=== PATIENT | male | born 1960 | race Caucasian/White ===

== ENCOUNTER 2019-07-29 19:07 | Emergency (ER) | payer BC, SELFPAY ==
[2019-07-29 19:54] VITALS: BP 155/89; PULSE 70; RESP 16; TEMP 36.8; O2SAT 97; BMI 32.1
== END 2019-07-29 20:30 | disposition left against medical advice (07) ==
LOC: ER 20:03
PROVIDERS: Emergency Provider Emergency Medicine
DX: I10 Essential (primary) hypertension (principal); R74.8 Abnormal levels of other serum enzymes; Z53.21 Procedure and treatment not carried out due to patient leaving prior to being seen by health care provider
CPT/HCPCS: 99281

== ENCOUNTER 2019-07-30 09:05 | Emergency (ER) | payer BC, SELFPAY ==
[2019-07-30 09:14] VITALS: BP 144/104; PULSE 88; RESP 16; TEMP 36.5; O2SAT 98; BMI 32.1
--- NOTE | 2019-07-30 09:25 | XR_ITS ---
WS: [id number] XR chest 1V portable [id number] REASON FOR EXAM: sob x 1 week FINDINGS: Comparison to previous exam the lung childs are well aerated. No pneumonia, pleural effusio n, pulmonary edema, or mass effect. The heart and mediastinal interfaces normal. 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 The hilum and apices are normal. No osseous abnormalities. XR/XR chest 1V portable [id number] IMPRESSION: Negative chest for active pathology.
--- NOTE | 2019-07-30 09:25 | ECG_ITS ---
Measurements Intervals [place] Rate: 95 P: 42 NM: 168 QRS: -45 QRSD: 94 T: 53 QT: 335 QTc: 421 SINUS RHYTHM WITH OCCASIONAL VENTRICULAR PREMATURE COMPLEXES WITH FREQUENT SUPRAVENTRICULAR PREMATURE COMPLEXES LEFT ANTERIOR FASCICULAR BLOCK [QRS AXIS <= -45, QR IN I, RS IN II] MINIMAL VOLTAGE CRITERIA FOR LVH, CONSIDER NORMAL VARIANT No previous ECG available for comparison Electronically Signed On 07-30-2019 13:20:52 CAN STACKER by Medina Delatorre M.D. [id number] f
--- NOTE | 2019-07-30 09:26 | W.ED.CHESTPA ---
HPI - Chest Pain General: Chief Complaint: Chest Pain Stated Complaint: HAS HAD CP Time Seen by Provider: 07/30/19 09:17 History of Present Illness: HPI narrative: Patient complains about shortness of breath for the last week or 2. Did see Dr. Lopez yesterday and was placed on calcium channel mikael. Has history of high blood pressure patient currently denies chest pain really said he is not had any chest pain over the last week and to just shortness of breath no was nausea and vomiting no diaphoresis. Is treated for reflux and hypertension patient was here at the ER last night because Dr. Lopez told to come up and get some cardiac enzymes done and patient did not want a wait he said he had a few people in front of me he went home because he is feeling okay complaint: other (Shortness of breath) Onset (ago): week(s) Timing of current episode: constant, stable and now resolved Prior episodes: Yes Onset: during rest Pain radiation: none Severity: mild Exacerbating factors: exertion Associated symptoms: Reports dyspnea; Deny abdominal pain, fever(s), nausea or vomiting Review of Systems Const: Denies: fever, chills or body aches Eyes: Denies: change in vision or blurry vision ENMT: Reports: nasal congestion; Denies: throat pain Card: Denies: chest pain or shortness of breath on exertion Resp: Reports: shortness of breath and non-productive cough; Denies: productive cough GI: Denies: abdominal pain, nausea or vomiting : Denies: difficulty urinating Musc: Denies: extremity pain Skin/Breast: Denies: rash Neuro: Denies: headache Psych: Denies: anxiety or depression Charles/Lymph: Denies: easy bruising PFSH ED PFSH: Social History Smoking and tobacco status: former smoker Physical Exam Const: COMMON NORMALS: no apparent distress, average body habitus and oriented x3 HENMT: COMMON NORMALS: normocephalic HEAD & SCALP: normal to inspection and normocephalic FACE & SINUS: normal facial exam Eye: COMMON NORMALS: conjunctivae normal GENERAL EYE: normal appearance of both eyes CONJUNCTIVA: Yes conjunctivae normal Neck/C-Spine: COMMON NORMALS: no JVD Chest: COMMONS NORMALS: inspection of chest normal Resp: COMMON NORMALS: normal respiratory effort and clear to auscultation bilaterally AUSCULTATION: clear to auscultation bilaterally Cardio: COMMON NORMALS: no JVD, regular rate and regular rhythm RATE: regular rate RHYTHM: regular rhythm GI: COMMON NORMALS: normal to inspection, nondistended, normoactive bowel sounds Extremity: COMMON NORMALS: normal to inspection and full ROM Neuro: COMMON NORMALS: oriented x3 Course Vital Signs: Vital signs: Vital Signs Temperature 97.7 F 07/30/19 09:14 Pulse Rate 99 07/30/19 10:46 Respiratory Rate 16 07/30/19 10:46 Blood Pressure 129/80 07/30/19 10:46 Pulse Oximetry 96 07/30/19 10:46 MDM - Chest Pain MDM Narrative: Medical decision making narrative: After visit with patient more thoroughly patient relates to me that he started experimental drug last week for Crohn's disease the drug comes [place] he is not for sure which arm of the testing is on but his blood pressure and shortness of breath seem to start after starting that medication. And Dr. Geiger treated him with a amlodipine starting yesterday. Patient does have a history of anxiety, high strung. Lab Data: Labs: Lab Results 07/30/19 07/30/19 07/30/19 Range/Units 09:30 09:30 09:30 WBC 8.8 (4.0-10.0) 10^3/ uL RBC 5.28 (4.1-5.3) 10^6/u L Hgb 14.0 (11.7-16.6) g/dL Hct 44.6 (42.0-52.0) % MCV 84.5 (80-94) fL MCH 26.5 L (28.0-34.0) pg MCHC 31.4 (30.0-36.0) g/dL RDW 14.3 (12.1-15.1) % Plt Count 387 (130-400) 10^3/c mm MPV 8.8 (7.4-10.4) fL Neut % (Auto) 70.2 % Lymph % (Auto) 16.7 % [place] % (Auto) 9.5 % Eos % (Auto) 2.7 % Baso % (Auto) 0.7 % Neut # (Auto) 6.2 (1.8-7.7) 10^3/u L Lymph # (Auto) 1.5 (0.8-4.8) 10^3/u L [place] # (Auto) 0.8 (0.2-0.9) 10^3/u L Eos # (Auto) 0.2 (0.0-0.8) 10^3/u L Baso # (Auto) 0.1 (0.0-0.1) 10^3/u L Nucleated RBC % (a uto) 0 % Nucleated RBCs # 0.0 /100WBC D-Dimer 0.29 (0-0.59) ug/mIFE U Sodium 142 (136-145) mmol/L Potassium 3.8 (3.5-5.1) mmol/L Chloride 105 (98-107) mmol/L Carbon Dioxide 24 (22-29) mmol/L Anion Gap 16.8 (5-19) BUN 15 (8-23) mg/dL Creatinine 1.2 (0.7-1.2) mg/dL GFR Calculation 61.8 L (90-130) mL/min Glucose 124 H (65-115) mg/dL Calcium 8.7 (8.5-10.5) mg/dL Total Bilirubin 0.2 (0.15-1.2) mg/dL AST 28 (0-40) U/L ALT 27 (0-41) U/L Alkaline Phosphata se 83 (40-130) IU/L Troponin T Baselin e (0-15) ng/mL Total Protein 7.2 (6.6-8.7) g/dL Albumin 4.1 (3.5-5.2) g/dL Globulin 3.1 (1.3-4.6) g/dL 07/30/19 Range/Units 09:30 WBC (4.0-10.0) 10^3/ uL RBC (4.1-5.3) 10^6/u L Hgb (11.7-16.6) g/dL Hct (42.0-52.0) % MCV (80-94) fL MCH (28.0-34.0) pg MCHC (30.0-36.0) g/dL RDW (12.1-15.1) % Plt Count (130-400) 10^3/c mm MPV (7.4-10.4) fL Neut % (Auto) % Lymph % (Auto) % [place] % (Auto) % Eos % (Auto) % Baso % (Auto) % Neut # (Auto) (1.8-7.7) 10^3/u L Lymph # (Auto) (0.8-4.8) 10^3/u L [place] # (Auto) (0.2-0.9) 10^3/u L Eos # (Auto) (0.0-0.8) 10^3/u L Baso # (Auto) (0.0-0.1) 10^3/u L Nucleated RBC % (a uto) % Nucleated RBCs # /100WBC D-Dimer (0-0.59) ug/mIFE U Sodium (136-145) mmol/L Potassium (3.5-5.1) mmol/L Chloride (98-107) mmol/L Carbon Dioxide (22-29) mmol/L Anion Gap (5-19) BUN (8-23) mg/dL Creatinine (0.7-1.2) mg/dL GFR Calculation (90-130) mL/min Glucose (65-115) mg/dL Calcium (8.5-10.5) mg/dL Total Bilirubin (0.15-1.2) mg/dL AST (0-40) U/L ALT (0-41) U/L Alkaline Phosphata se (40-130) IU/L Troponin T Baselin e 29 H (0-15) ng/mL Total Protein (6.6-8.7) g/dL Albumin (3.5-5.2) g/dL Globulin (1.3-4.6) g/dL EKG Data^: EKG 1: EKG interpretation date: 07/30/19 EKG interpretation time: 09:27 Interpretation: SR with PVC,s, LAFB, vent rate 95, pr-168ms, qrs 94ms EKG 2: EKG interpretation date: 07/30/19 EKG interpretation time: 11:49 Interpretation: RVWd, SR PVC, Dr. Garza rvwd Discharge Plan Discharge Patient Disposition: Home, Self-Care Clinical Impression: Cough, Anxiety Condition: Stable Prescriptions: No Action losartan 100 mg Tablet 100 mg PO DAILY RF: 0 upadacitinib 15 mg Tablet Extended Release 24 Hr 30 mg PO DAILY RF: 0 omeprazole 40 mg Capsule,Delayed Release(Dr/Ec) 40 mg PO DAILY RF: 0 Multiple Vitamins Tablet 1 tab PO DAILY RF: 0 triamcinolone acetonide 0.1 % cream See Rx Instructions .ROUTE .COMPLEX RF: 0 Norvasc 10 mg Tablet 10 mg PO DAILY RF: 0 hydrochlorothiazide 12.5 mg capsule 12.5 mg PO DAILY RF: 0 Discharge Orders: Discharge Order (Routine); Ordered 07/30/19 Ordered By: Felipe Daniel Discharge Diet: Usual diet Discharge Activity: Increase activity as tolerated Patient Instructions: Dyspnea (ED), Anxiety (ED) Activity Restrictions/Additional Instructions: Follow-up with your primary care provider discuss medication changes and experimental drug that you are on continue checking blood pressure twice a day return here if symptoms worsen or with your primary provider Coding Level of Care Code ED Permastone Mechanic for Kade Fwlondon Exam Comprehensive
[2019-07-30 09:33] VITALS: O2SAT 95
[2019-07-30 09:35] LABS: Basophils # 0.1 10^3/uL (0.0-0.1); Basophils % 0.7 %; Eosinophils # 0.2 10^3/uL (0.0-0.8); Eosinophils % 2.7 %; Hematocrit 44.6 % (42.0-52.0); Lymphocytes # 1.5 10^3/uL (0.8-4.8); Lymphocytes % 16.7 %; Mean Corpuscular HGB Conc 31.4 g/dL (30.0-36.0); Mean Corpuscular Hemoglobin 26.5 pg (28.0-34.0); Mean Corpuscular Volume 84.5 fL (80-94); Mean Platelet Volume 8.8 fL (7.4-10.4); Monocytes # 0.8 10^3/uL (0.2-0.9); Monocytes % 9.5 %; Neutrophils # 6.2 10^3/uL (1.8-7.7); Neutrophils % 70.2 %; Nucleated Red Blood Cells % 0 %; Platelet Count 387 10^3/cmm (130-400); Red Blood Count 5.28 10^6/uL (4.1-5.3); Red Cell Distribution Width 14.3 % (12.1-15.1); White Blood Count 8.8 10^3/uL (4.0-10.0)
--- NOTE | 2019-07-30 09:39 | PC.NURSE ---
portable chest xray at bedside
[2019-07-30 09:49] LABS: Alanine Aminotransferase 27 U/L (0-41); Albumin Level 4.1 g/dL (3.5-5.2); Alkaline Phosphatase 83 IU/L (40-130); Anion Gap 16.8 (5-19); Aspartate Amino Transferase 28 U/L (0-40); Blood Urea Nitrogen 15 mg/dL (8-23); Calcium 8.7 mg/dL (8.5-10.5); Carbon Dioxide 24 mmol/L (22-29); Chloride 105 mmol/L (98-107); Globulin 3.1 g/dL (1.3-4.6); Glomerular Filtration Rate 61.8 mL/min (90-130); Glucose 124 mg/dL (65-115); Potassium 3.8 mmol/L (3.5-5.1); Sodium 142 mmol/L (136-145); Total Bilirubin 0.2 mg/dL (0.15-1.2); Total Protein 7.2 g/dL (6.6-8.7)
[2019-07-30 09:51] LABS: Troponin(5th) Baseline 29 ng/mL (0-15)
[2019-07-30 10:22] LABS: D Dimer 0.29 ug/mIFEU (0-0.59)
[2019-07-30 10:46] VITALS: BP 129/80; PULSE 99; RESP 16; O2SAT 96
--- NOTE | 2019-07-30 11:25 | ECG_ITS ---
Measurements Intervals [place] Rate: 82 P: 40 WI: 170 QRS: -44 QRSD: 90 T: 13 QT: 362 QTc: 425 SINUS RHYTHM WITH OCCASIONAL VENTRICULAR PREMATURE COMPLEXES WITH OCCASIONAL SUPRAVENTRICULAR PREMATURE COMPLEXES LEFT AXIS DEVIATION [QRS AXIS < -30] MODERATE VOLTAGE CRITERIA FOR LVH, CONSIDER NORMAL VARIANT No previous ECG available for comparison Electronically Signed On 07-30-2019 13:22:46 MANAGER SOCIAL RESPONSIBILITY by Medina Delatorre M.D. [id number] f
[2019-07-30 11:48] VITALS: BP 131/73; PULSE 89; RESP 20; O2SAT 96
[2019-07-30 11:58] LABS: Troponin 5 2HR 26.38 ng/mL (0-15)
[2019-07-30 12:01] LABS: Troponin 5 2HR Delta -2.62 ABS# (0-10)
[2019-07-30 12:07] VITALS: BP 127/66; PULSE 79; RESP 12; O2SAT 97
== END 2019-07-30 12:07 | disposition home or self-care (01) ==
PROVIDERS: Emergency Provider Nurse Practitioner Family
DX: R05 Cough (principal); F41.9 Anxiety disorder, unspecified; I10 Essential (primary) hypertension; Z87.891 Personal history of nicotine dependence
CPT/HCPCS: 36415; 71045; 80053; 84484; 85025; 85378; 93005; 99282; 99284

== ENCOUNTER 2019-12-23 07:29 | Outpatient (CLI) | payer BC, SELFPAY ==
--- NOTE | 2019-12-23 07:46 | NMCV_ITS ---
NM edy perf SPECT r/s* [id number] Guy Duque Age: 59 Gender: M : 1960 Exam Date: 12/23/2019 08:20 Ordering Phys: Kaylee Lopez MD Technologist: YURI Cancino Exam [facility]: [facility] Indications: CHEST PAIN STRESS TEST [facility] IMAGE PROTOCOL Rest/Stress 1 Exercise Day Radiopharmaceutical Dose (mCi) Administration Site Administered by Rest: Tc-99m 10.9 IV YURI Oshea Sestamibi Stress:Tc-99m 32.2 IV YURI Oshea Sestamibi Rest: 23-Dec-2019 60 Discovery 630 Stress: 23-Dec-2019 30 Discovery 630 Radiopharmaceutical was injected at 86 % maximum heart rate. Images obtained in supine and prone position. SPECT RESULTS Technical Quality: Excellent Raw Data Analysis: Normal Image Corrections: No attenuation or motion correction applied Summed Stress Score: 1 Summed Rest Score: 2 Summed Difference Score: 0 PERFUSION FINDINGS Small size perfusion abnormality of mild severity of apical lateral wall on rest images with improved tracer uptake on stress images. This is suggestive of attenuation artifact. FUNCTIONAL RESULTS (calculated via Gated SPECT) Stress Image LV EF (%): 52 Stress EDV (mL):123 TID: 1.08 Stress ESV (mL):59 FUNCTIONAL FINDINGS: The left ventricle is normal in size. Transient Ischemia Dilatation of 1.1. There is normal left ventricular systolic function. The left ventricular ejection fraction is low normal with a value of 52%. There is normal left ventricular wall thickening. IMPRESSIONS 1. Myocardial perfusion imaging is normal. Attenuation artifact noted in apical lateral wall. 2. Overall left ventricular systolic function is low normal without regional wall motion abnormalities. 3. There is normal left ventricular wall thickening. 4. Scan indicates low risk for cardiac events. Median Delatorre MD (Electronically Signed) Final Date: 23 December 2019 17:32 S
--- NOTE | 2019-12-23 07:46 | ECG_ITS ---
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 Interpretive Statements NAME OF STUDY: EXERCISE SESTAMIBI STRESS TEST INDICATION: Chest Pain EXERCISE DATA: The patient was exercised by Adria protocol. Baseline heart rate was 68 beats per minute. Baseline blood pressure was 127/86 millimeters of mercury. Target heart rate was 159 beats per minute. Maximum heart rate achieved was 147, which was 92 % of the target heart rate. Maximum blood pressure was 178/94 millimeters of mercury. Total exercise time was 4 minutes 22 seconds. Maximum METs achieved was 7.0, maximum VO2 was 24.5. The reason for ending the test was maximum effort achieved. The patient complained of shortness of breath during the stress test, which then resolved at the end of the test. ELECTROCARDIOGRAM: BASELINE: Sinus rhythm, left axis, interventricular conduction delay, no significant ST-T changes at the baseline noted. EXERCISE: At the peak exercise level, no significant ST-T changes suggestive of ischemia noted. RECOVERY: During the recovery period, heart rate dropped appropriately. No significant ST-T changes in the recovery suggestive of ischemia noted. CONCLUSION: 1. Exercise capacity poor. 2. Heart rate response was appropriate. 3. Blood pressure response was appropriate. 4. Symptoms not suggestive of ischemia. 5. Electrocardiogram portion of the stress test was not suggestive of ischemia. 6. Nuclear scan will be documented separately. Electronically Signed On 01-01-2020 19:25:59 CDT by Travis Archibald M.D. [id number]
[2019-12-23 07:47] VITALS: BMI 31.2
[2019-12-23 09:28] VITALS: BP 171/89; PULSE 87
== END 2019-12-23 07:30 | disposition home or self-care (01) ==
PROVIDERS: PCP Family Medicine; Visit Provider Family Medicine
DX: R07.89 Other chest pain (principal)
CPT/HCPCS: 78452; 93017; A9500

== ENCOUNTER → 2020-01-06 14:00 | Outpatient (BNVA) | payer BC, SELFPAY | PROVIDERS: PCP Family Medicine; Visit Provider Nurse Practitioner Family | DX: R50.9 Fever, unspecified (principal); R07.9 Chest pain, unspecified | CPT/HCPCS: 80053; 85025; 87635 ==

== ENCOUNTER 2020-01-10 13:55 | Emergency (ER) | payer BC, SELFPAY ==
[2020-01-10 14:02] VITALS: BP 154/95; PULSE 99; RESP 18; TEMP 37.3; O2SAT 95; BMI 30.8
--- NOTE | 2020-01-10 14:22 | XR_ITS ---
WS: [id number] Portable AP upright chest, 01/10/2020 Clinical Data: fever Comparison: Portable chest, 07/30/2019. Findings: No nodules, masses or effusions are seen. The heart is normal. The pulmonary vascularity is not increased. There is a patchy opacity in the right upper lobe consistent with acute pneumonia. Le ft lung is clear. No pneumothorax is seen. XR/XR chest 1V portable [id number] Impression: 1. Patchy opacity in right upper lobe most consistent with acute pneumonia. 2. Recommend repeat chest x-ray in one to 2 days.
--- NOTE | 2020-01-10 14:23 | W.ED.GENADLT ---
HPI - General Adult General: Chief complaint: General Medical Stated complaint: fever/abd pain Time Seen by Provider: 01/10/20 14:11 History of Present Illness: HPI narrative: Patient comes in complain about a 6-day history of intermittent fever. Was seen in the clinic on Monday had a COVID test done that was negative does have a dog that has tick fever presently patient denies any tick bites but does complain about muscle aches and fever does have some dizziness. No covid exposure that he is aware of he does have a history of Crohn's patient has been taken Tylenol and ibuprofen for his fever MD complaint: Fever Onset (ago): day(s) Severity: mild Associated symptoms: Reports fevers/chills; Deny chest pain, dyspnea, headache(s), nausea, rash or vomiting Review of Systems Narrative: Body aches Const: Reports: fever(s); Denies: chills or body aches Eyes: Denies: change in vision or blurry vision ENMT: Denies: throat pain or nasal congestion Card: Denies: chest pain or dyspnea on exertion Resp: Denies: dyspnea, productive cough or non-productive cough GI: Reports: diarrhea (Chronic); Denies: abdominal pain, nausea or vomiting : Denies: difficulty urinating Musc: Denies: extremity pain Skin/Breast: Denies: rash Neuro: Denies: headache(s) Psych: Denies: anxiety or depression Charles/Lymph: Denies: easy bruising PFS ED PFSH: Social History (Updated 01/06/20 @ 13:32 by Sakina Winn LPN, RT) Quit status (tobacco): has quit using tobacco Former quit date comment: PPD x 30 yrs Second hand smoke exposure: No Alcohol intake: never Lives independently: Yes History of recent travel: No Current gender identity: Male Physical Exam Const: COMMON NORMALS: no acute distress, average body habitus and patient oriented x3 HENMT: COMMON NORMALS: normocephalic HEAD & SCALP: normal to inspection and normocephalic FACE & SINUS: normal facial exam Eye: COMMON NORMALS: conjunctivae normal GENERAL EYE: appearance normal, both eyes and all related structures CONJUNCTIVA: Yes conjunctivae normal Neck/C-Spine: COMMON NORMALS: no JVD Chest: COMMONS NORMALS: normal inspection of the chest Resp: COMMON NORMALS: normal respiratory effort and clear to auscultation bilaterally AUSCULTATION: clear to auscultation bilaterally Cardio: COMMON NORMALS: no JVD, regular rate and regular rhythm RATE: regular rate RHYTHM: regular rhythm GI: COMMON NORMALS: Normal to inspection, nondistended, normoactive bowel sounds present Extremity: COMMON NORMALS: normal to inspection and full ROM Neuro: COMMON NORMALS: patient oriented x3 Course Vital Signs: Vital signs: Vital Signs Temperature 100.2 F H 01/10/20 15:15 Pulse Rate 88 01/10/20 16:01 Respiratory Rate 18 01/10/20 16:01 Blood Pressure 119/85 01/10/20 16:01 Pulse Oximetry 95 01/10/20 16:01 MDM - General Adult MDM Narrative: Medical decision making narrative: Discussed case Dr. Thompson offered patient admission patient declined admission said he rather recuperate at home patient is aware that if he worsens he is to return here immediately. Lab Data: Labs: Lab Results 01/10/20 01/10/20 01/10/20 Range/Units 14:23 14:23 14:23 WBC 10.7 H (4.0-10.0) 10^3/ uL RBC 4.79 (4.1-5.3) 10^6/u L Hgb 13.5 (11.7-16.6) g/dL Hct 42.7 (42.0-52.0) % MCV 89.1 (80-94) fL MCH 28.2 (28.0-34.0) pg MCHC 31.6 (30.0-36.0) g/dL RDW 13.4 (12.1-15.1) % Plt Count 302 (130-400) 10^3/c mm MPV 9.1 (7.4-10.4) fL Neut % (Auto) 80.5 % Lymph % (Auto) 6.3 % [place] % (Auto) 11.8 % Eos % (Auto) 0.1 % Baso % (Auto) 0.5 % Neut # (Auto) 8.63 H (1.8-7.7) 10^3/u L Lymph # (Auto) 0.7 L (0.8-4.8) 10^3/u L [place] # (Auto) 1.3 H (0.2-0.9) 10^3/u L Eos # (Auto) 0.0 (0.0-0.8) 10^3/u L Baso # (Auto) 0.1 (0.0-0.1) 10^3/u L Nucleated RBC % (a uto) 0 % Nucleated RBCs # 0.0 /100WBC ESR 87 H (0-10) mm/hr Sodium 127 L (136-145) mmol/L Potassium 3.2 L (3.5-5.1) mmol/L Chloride 83 L (98-107) mmol/L Carbon Dioxide 30 H (22-29) mmol/L Anion Gap 17.2 (5-19) BUN 32 H (8-23) mg/dL Creatinine 2.5 H (0.7-1.2) mg/dL GFR Calculation 26.4 L (90-130) mL/min Glucose 102 (65-115) mg/dL Calculated Osmolal ity 261 L (285-295) mOsm/k g Lactate (0.5-2.2) mmol/L Calcium 8.3 L (8.5-10.5) mg/dL Total Bilirubin 0.3 (0.15-1.2) mg/dL AST 87 H (0-40) U/L ALT 65 H (0-41) U/L Alkaline Phosphata se 87 (40-130) IU/L C-Reactive Protein 503.4 H (0.0-4.9) mg/L Total Protein 7.6 (6.6-8.7) g/dL Albumin 3.8 (3.5-5.2) g/dL Globulin 3.8 (1.3-4.6) g/dL Urine Color (Yellow) Urine Appearance (CLEAR) Urine pH (5-7) Ur Specific Gravit y (1.005-1.030) Urine Protein (Negative) Urine Glucose (UA) (Normal) Urine Ketones (Negative) Urine Blood (Negative) Urine Nitrate (Negative) Urine Bilirubin (NEGATIVE) Urine Urobilinogen (Negative) mg/dL Ur Leukocyte Lorraine ase (Negative) Urine RBC (0-2) /hpf Urine WBC (0-5) /hpf Ur Squamous Epith Cells (0-5) Amorphous Sediment Urine Bacteria (NONE) Fine Granular Cast s /lpf 08/14/20 08/14/20 Range/Units 14:23 15:25 WBC (4.0-10.0) 10^3/ uL RBC (4.1-5.3) 10^6/u L Hgb (11.7-16.6) g/dL Hct (42.0-52.0) % MCV (80-94) fL MCH (28.0-34.0) pg MCHC (30.0-36.0) g/dL RDW (12.1-15.1) % Plt Count (130-400) 10^3/c mm MPV (7.4-10.4) fL Neut % (Auto) % Lymph % (Auto) % [place] % (Auto) % Eos % (Auto) % Baso % (Auto) % Neut # (Auto) (1.8-7.7) 10^3/u L Lymph # (Auto) (0.8-4.8) 10^3/u L [place] # (Auto) (0.2-0.9) 10^3/u L Eos # (Auto) (0.0-0.8) 10^3/u L Baso # (Auto) (0.0-0.1) 10^3/u L Nucleated RBC % (a uto) % Nucleated RBCs # /100WBC ESR (0-10) mm/hr Sodium (136-145) mmol/L Potassium (3.5-5.1) mmol/L Chloride (98-107) mmol/L Carbon Dioxide (22-29) mmol/L Anion Gap (5-19) BUN (8-23) mg/dL Creatinine (0.7-1.2) mg/dL GFR Calculation (90-130) mL/min Glucose (65-115) mg/dL Calculated Osmolal ity (285-295) mOsm/k g Lactate 1.2 (0.5-2.2) mmol/L Calcium (8.5-10.5) mg/dL Total Bilirubin (0.15-1.2) mg/dL AST (0-40) U/L ALT (0-41) U/L Alkaline Phosphata se (40-130) IU/L C-Reactive Protein (0.0-4.9) mg/L Total Protein (6.6-8.7) g/dL Albumin (3.5-5.2) g/dL Globulin (1.3-4.6) g/dL Urine Color Yellow (Yellow) Urine Appearance Clear (CLEAR) Urine pH 5 (5-7) Ur Specific Gravit y 1.015 (1.005-1.030) Urine Protein Trace (Negative) Urine Glucose (UA) Norm (Normal) Urine Ketones Negative (Negative) Urine Blood 3+ H (Negative) Urine Nitrate Negative (Negative) Urine Bilirubin Neg (NEGATIVE) Urine Urobilinogen Norm (Negative) mg/dL Ur Leukocyte Lorraine ase Negative (Negative) Urine RBC None (0-2) /hpf Urine WBC 0-4 H (0-5) /hpf Ur Squamous Epith Cells 0-4 H (0-5) Amorphous Sediment 1+ Urine Bacteria 1+ H (NONE) Fine Granular Cast s 0-4 H /lpf Discharge Plan Discharge Patient Disposition: Home Clinical Impression: Hypokalemia Pneumonia Qualifiers: Pneumonia type: due to unspecified organism Laterality: right Lung location: upper lobe of lung Qualified Code(s): J18.9 - Pneumonia, unspecified organism CKD (chronic kidney disease) Qualifiers: Chronic kidney disease stage: stage 2 (mild) Qualified Code(s): N18.2 - Chronic kidney disease, stage 2 (mild) Condition: Stable Prescriptions: New Augmentin 875-125 mg tablet 1 tab PO BID Qty: 14 RF: 0 Zithromax Z-Bogdan 250 mg tablet See Rx Instructions .ROUTE .COMPLEX Qty: 6 RF: 0 ProAir HFA 90 mcg/actuation HFA aerosol inhaler 4 inh INHALATION Q4H PRN (Reason: shortness of breath or wheezing) Qty: 8.5 RF: 0 potassium chloride 20 mEq tablet extended release 20 meq PO DAILY Qty: 20 RF: 0 No Action losartan 100 mg Tablet 100 mg PO DAILY RF: 0 omeprazole 40 mg Capsule,Delayed Release(Dr/Ec) 40 mg PO DAILY RF: 0 venlafaxine 37.5 mg Capsule,Extended Release 24hr 37.5 mg PO DAILY RF: 0 atorvastatin 20 mg Tablet 20 mg PO DAILY RF: 0 metoprolol succinate 50 mg tablet extended release 24 hr 50 mg PO BID RF: 0 chlorthalidone 50 mg tablet 50 mg PO DAILY RF: 0 alprazolam 0.5 mg tablet 0.5 mg PO Q4H PRN (Reason: Anxiety) RF: 0 tadalafil 10 mg tablet 10 mg PO PRN PRN (Reason: Sexual Activity) RF: 0 multivitamin [Multiple Vitamins] Tablet 1 tab PO DAILY RF: 0 triamcinolone acetonide 0.1 % cream See Rx Instructions .ROUTE .COMPLEX RF: 0 amlodipine [Norvasc] 10 mg Tablet 10 mg PO DAILY RF: 0 Discharge Orders: Discharge Order (Routine); Ordered 01/10/20 Ordered By: Joselito Daniel Referrals: Kaylee Lopez MD [Primary Care Provider] - Discharge Diet: Usual diet Discharge Activity: Increase activity as tolerated Patient Instructions: Hypokalemia (ED), Pneumonia (ED) Activity Restrictions/Additional Instructions: Follow-up with medical provider as directed. Take medications as prescribed. Return to the ER or your medical provider if condition worsens. Please read and understand discharge instructions. If any questions ask please. Follow-up your primary care provider on Monday for repeat chest x-ray and make sure he gets potassium checked on a regular basis also talk to your family medical provider about your chronic kidney disease Discharge Date/Time: 01/10/20 16:02 Coding Level of Care Code ED Polisher Balance Screwhead for Primitivog Fwd Exam Comprehensive
[2020-01-10] MEDS: sodium chloride 0.9% 1,000 ML 999 ML IV (14:31)
[2020-01-10 14:33] LABS: Basophils # 0.1 10^3/uL (0.0-0.1); Basophils % 0.5 %; Eosinophils % 0.1 %; Hematocrit 42.7 % (42.0-52.0); Hemoglobin 13.5 g/dL (11.7-16.6); Lymphocytes # 0.7 10^3/uL (0.8-4.8); Lymphocytes % 6.3 %; Mean Corpuscular HGB Conc 31.6 g/dL (30.0-36.0); Mean Corpuscular Hemoglobin 28.2 pg (28.0-34.0); Mean Corpuscular Volume 89.1 fL (80-94); Mean Platelet Volume 9.1 fL (7.4-10.4); Monocytes # 1.3 10^3/uL (0.2-0.9); Monocytes % 11.8 %; Neutrophils # 8.63 10^3/uL (1.8-7.7); Neutrophils % 80.5 %; Nucleated Red Blood Cells % 0 %; Platelet Count 302 10^3/cmm (130-400); Red Blood Count 4.79 10^6/uL (4.1-5.3); Red Cell Distribution Width 13.4 % (12.1-15.1); White Blood Count 10.7 10^3/uL (4.0-10.0)
[2020-01-10] MEDS: ondansetron 2 mg/ML SDV 2 mL 4 MG IVP (14:33)
[2020-01-10 14:43] VITALS: BP 136/82; PULSE 105; RESP 20; O2SAT 94
[2020-01-10 14:51] LABS: Alanine Aminotransferase 65 U/L (0-41); Albumin Level 3.8 g/dL (3.5-5.2); Alkaline Phosphatase 87 IU/L (40-130); Anion Gap 17.2 (5-19); Aspartate Amino Transferase 87 U/L (0-40); Blood Urea Nitrogen 32 mg/dL (8-23); Calcium 8.3 mg/dL (8.5-10.5); Carbon Dioxide 30 mmol/L (22-29); Chloride 83 mmol/L (98-107); Globulin 3.8 g/dL (1.3-4.6); Glomerular Filtration Rate 26.4 mL/min (90-130); Glucose 102 mg/dL (65-115); Osmolality Calculated 261 mOsm/kg (285-295); Potassium 3.2 mmol/L (3.5-5.1); Sodium 127 mmol/L (136-145); Total Bilirubin 0.3 mg/dL (0.15-1.2); Total Protein 7.6 g/dL (6.6-8.7)
[2020-01-10 14:52] LABS: Lactate (Lactic Acid level) 1.2 mmol/L (0.5-2.2)
[2020-01-10 15:15] VITALS: BP 155/90; PULSE 103; RESP 12; TEMP 37.9; O2SAT 93
[2020-01-10 15:23] LABS: C Reactive Protein 503.4 mg/L (0.0-4.9)
[2020-01-10] MEDS: acetaminophen 500 mg Tablet 1000 MG PO (15:27)
[2020-01-10] MEDS: cefTRIAXone 1,000 MG in sodium chloride 0.9% (plus) 50 ML 100 MG IV (15:29)
[2020-01-10 15:31] LABS: Erythrocyte Sedimentation Rate 87 mm/hr (0-10)
[2020-01-10 15:34] LABS: Add Urine Microscopic? YES; Bilirubin Urine Neg (NEGATIVE); Blood Urine 3+ (Negative); Glucose Urine UA Norm (Normal); Ketones Urine Negative (Negative); Leukocyte Esterase Urine Negative (Negative); Nitrate Urine Negative (Negative); Protein Urine Trace (Negative); Specific Gravity, Urine 1.015 (1.005-1.030); Urine Appearance Clear (CLEAR); Urine Color Yellow (Yellow); Urobilinogen Urine Norm (Negative); pH Urine 5 (5-7)
[2020-01-10] MEDS: potassium chloride ER 10 mEq Tablet 20 MEQ PO (15:37)
[2020-01-10 16:00] VITALS: BP 119/85; PULSE 88; RESP 18; O2SAT 95
[2020-01-10 16:01] VITALS: BP 119/85; PULSE 88; RESP 18; O2SAT 95
[2020-01-10 16:24] LABS: Add Urine Culture? No; Amorphous Sediment Urine 1+; Bacteria Urine 1+; Fine Granular Casts Urine 0-4 /lpf; Squamous Epithelial Cell Urine 0-4 (0-5); WBC Urine 0-4 /hpf (0-5)
[2020-01-13 11:15] LABS: Lyme AB Screen <0.90 index
[2020-01-14 16:49] LABS: RMSF IGG NOT DETECTED; RMSF IGM NOT DETECTED
[2020-01-14 22:04] LABS: E. Chaffeensis AB IGG <1:64; E. Chaffeensis AB IGM <1:20
== END 2020-01-10 16:02 | disposition home or self-care (01) ==
PROVIDERS: Emergency Provider Nurse Practitioner Family; PCP Family Medicine
DX: E87.6 Hypokalemia (principal); J18.9 Pneumonia, unspecified organism; N18.2 Chronic kidney disease, stage 2 (mild); Z87.891 Personal history of nicotine dependence
CPT/HCPCS: 12345; 71045; 80053; 81001; 83605; 85025; 85651; 86140; 86618; 86666; 86757; 96360; 96361; 96365; 96374; 96375; 99283; J0696; J2405; J7030

== ENCOUNTER → 2020-02-05 15:16 | Outpatient (BNVA) | payer BC, SELFPAY | PROVIDERS: PCP Family Medicine; Visit Provider Urology | DX: N40.1 Benign prostatic hyperplasia with lower urinary tract symptoms (principal); R35.0 Frequency of micturition; R97.20 Elevated prostate specific antigen [PSA]; N52.9 Male erectile dysfunction, unspecified; Z12.5 Encounter for screening for malignant neoplasm of prostate | CPT/HCPCS: 81001 ==

== ENCOUNTER 2020-03-03 08:53 | Outpatient (CLI) | payer BC, SELFPAY ==
--- NOTE | 2020-03-03 09:30 | USCV_ITS ---
Guy Duque Age: 59 Gender: M : 1960 Exam Date: 03/03/2020 09:32 Ordering Phys: Ever Emerson MD ([email or web address]) Technologist: Camilo Ellis Exam Location: [facility] [place] Indication: ATYPICAL CHEST PAIN BP: 131 / 74 HR: 85 Rhythm: Sinus Technical Quality: Adequate MEASUREMENTS (Male / Female) Normal Values 2D ECHO LV Diastolic Diameter PLAX 4.9 cm 4.2 - 5.9 / 3.9 - 5.3 cm LV Systolic Diameter PLAX 3.4 cm IVS Diastolic Thickness 1.2 cm 0.6 - 1.0 / 0.6 - 0.9 cm IVS Systolic Thickness 1.6 cm LVPW Diastolic Thickness 1.1 cm 0.6 - 1.0 / 0.6 - 0.9 cm LVPW Systolic Thickness 1.5 cm LVOT Diameter 2.0 cm LV Ejection Fraction 2D Teich 59.1 % LV Ejection Fraction MOD 2C 34.4 % LV Ejection Fraction 2C AL 34.4 % LA Diameter 3.8 cm LA Width 3.6 cm LA Height 5.2 cm RA Width 4.0 cm RA Height 4.9 cm Aorta at Sinotubular Diameter 1.3 cm M-MODE LV Diastolic Diameter MM 5.1 cm 4.2 - 5.9 / 3.9 - 5.3 cm LV Systolic Diameter MM 3.5 cm LV Ejection Fraction MM Teich 60.8 % IVS Diastolic Thickness MM 1.0 cm 0.6 - 1.0 / 0.6 - 0.9 cm IVS Systolic Thickness MM 1.5 cm LVPW Diastolic Thickness MM 1.2 cm 0.6 - 1.0 / 0.6 - 0.9 cm LVPW Systolic Thickness MM 1.8 cm RV Diastolic Diameter MM 2.3 cm Aortic Annulus Diameter 3.9 cm LA Ao Ratio MM 1.1 MV E Point Septal Separation 0.9 cm DOPPLER AV Peak Velocity 141.0 cm/s LVOT Peak Velocity 91.0 cm/s AV Area Cont Eq vti 2.3 cm squared AV Area Cont Eq pk 2.1 cm squared MV Area PHT 5.0 cm squared Mitral E to A Ratio 0.7 MV E' Velocity 34.5 cm/s Mitral E to MV E' Ratio 6.6 Mitral E to LV E' Lateral Ratio 5.5 Mitral E to LV E' Septal Ratio 8.4 TR Peak Velocity 117.7 cm/s TR Peak Gradient 5.5 mmHg TV Peak E Velocity 90.0 cm/s Right Atrial Pressure 3.0 mmHg Pulmonary Artery Systolic Pressu 8.5 mmHg PV Peak Velocity 137.0 cm/s FINDINGS Left Ventricle Diffuse hypokinesia left ventricle with ejection fraction of 35 to 40%. Normal LV size.Grade I/IV diastolic dysfunction (abnormal relaxation filling pattern), normal to mildly elevated filling pressures. Right Ventricle Normal right ventricular size and systolic function. Right Atrium The right atrium is normal in size. Left Atrium Mildly increased left atrial size. Mitral Valve Thickened mitral valve. Aortic Valve No gross abnormalities noted Tricuspid Valve No gross abnormalities noted. Pulmonic Valve Pulmonic valve not well visualized. Pericardium Normal pericardium without effusion. Aorta Normal ascending aorta dimension. CONCLUSIONS Diffuse hypokinesia left ventricle with ejection fraction of 35 to 40%. Normal LV size. Type I diastolic dysfunction. Thickened mitral valve. Mildly increased left atrial size. There is no pericardial effusion. There are no intracardiac masses. No previous study is available for comparison. Dr Ever Emerson MD FACC (Electronically Signed) Final Date: 03 March 2020 16:39 S
== END 2020-03-03 08:54 | disposition home or self-care (01) ==
LOC: US 08:56
PROVIDERS: PCP Family Medicine; Visit Provider Internal Medicine Cardiovascular Disease
DX: R07.89 Other chest pain (principal); I05.9 Rheumatic mitral valve disease, unspecified
CPT/HCPCS: 93306

== ENCOUNTER 2020-03-13 11:40 | Outpatient (CLI) | payer BC, SELFPAY ==
[2020-03-13 12:13] LABS: Basophils # 0.1 10^3/uL (0.0-0.1); Basophils % 0.8 %; Eosinophils # 0.1 10^3/uL (0.0-0.8); Hematocrit 40.9 % (42.0-52.0); Hemoglobin 12.9 g/dL (11.7-16.6); Mean Corpuscular HGB Conc 31.5 g/dL (30.0-36.0); Mean Corpuscular Hemoglobin 28.5 pg (28.0-34.0); Mean Corpuscular Volume 90.5 fL (80-94); Mean Platelet Volume 8.7 fL (7.4-10.4); Monocytes # 0.7 10^3/uL (0.2-0.9); Monocytes % 10.6 %; Neutrophils # 4.51 10^3/uL (1.8-7.7); Neutrophils % 69.6 %; Nucleated Red Blood Cells % 0 %; Platelet Count 440 10^3/cmm (130-400); Red Blood Count 4.52 10^6/uL (4.1-5.3); Red Cell Distribution Width 15.2 % (12.1-15.1); White Blood Count 6.5 10^3/uL (4.0-10.0)
[2020-03-13 12:32] LABS: INR 0.94 (0.8-1.2)
[2020-03-13 12:33] LABS: Partial Thromboplastin Time 31.5 SECONDS (23.9-36.7)
[2020-03-13 12:44] LABS: Anion Gap 12.9 (5-19); Blood Urea Nitrogen 27 mg/dL (8-23); Calcium 9.3 mg/dL (8.5-10.5); Carbon Dioxide 28 mmol/L (22-29); Chloride 101 mmol/L (98-107); Glomerular Filtration Rate 56.1 mL/min (90-130); Glucose 94 mg/dL (65-115); Osmolality Calculated 291 mOsm/kg (285-295); Potassium 3.9 mmol/L (3.5-5.1); Sodium 138 mmol/L (136-145)
== END 2020-03-13 11:41 | disposition home or self-care (01) ==
LOC: LAB 11:43
PROVIDERS: PCP Family Medicine; Visit Provider Internal Medicine Cardiovascular Disease
DX: R06.02 Shortness of breath (principal); R07.89 Other chest pain
CPT/HCPCS: 36415; 80048; 85025; 85610; 85730; 87635

== ENCOUNTER 2020-03-17 06:00 | Day surgery (SDC) | payer BC, SELFPAY ==
[2020-03-16 13:20] VITALS: BMI 31.4
[2020-03-17] VITALS (32 sets, daily range): BP systolic 107–167; BP diastolic 69–100; PULSE 76–104; RESP 10–27; TEMP 36.6–37.1; O2SAT 94–98
--- NOTE | 2020-03-17 06:00 | XACV_ITS ---
Ht: 178 cm Wt: 99 kg BSA: 2.24 m2 Gender: Male : 1960 Any Known Allergies: Other Exam Priority: Routine Procedure(s): Procedure Description: Diagnostic procedure Procedure Description: Left Heart Catheterization Procedure Description: Left ventriculography Procedure Description: Coronary Angiography Diagnostic Cath Status: Elective Diagnostic Findings * The left main is a large-caliber vessel with no significant stenotic lesions. * The left anterior descending artery is a medium caliber vessel which appears to taper off towards the LV apex. The first diagonal branch is of almost similar caliber and was found to have no significant stenotic lesions. Some intimal irregularities were noted in the proximal segment of the artery. * The left circumflex artery disease small to medium caliber was seen, nondominant, with no significant stenotic lesions. * The intermedius artery is medium caliber vessel with no significant stenotic lesions. * Right coronary artery is a relatively large caliber somewhat ectatic, dominant vessel with no significant stenotic lesions. Conclusions 1. This is a 59-year-old white male with history of hypertension, dyslipidemia, smoking abuse and family history of premature atherosclerotic heart disease, presented with exertional dyspnea and chest pain. He had a myocardial perfusion imaging which was unremarkable. He had an echocardiogram which revealed LV ejection fraction of around 35 to 40%. Diffuse hypokinesia of the left ventricle was noted. In view of the patient's ongoing symptoms and the abnormal objective findings, in order to further evaluate his coronary status, a cardiac catheterization was recommended. Patient underwent left heart catheterization with left and right coronary angiogram and LV angiogram today. The findings are as follows. 2. Right dominant coronary circulation. No significant obstructive coronary artery disease. Electively larger, ectatic dominant right coronary artery. The first diagonal branch was found to have mild disease. The LV ejection fraction was 45 to 50%. Features of left ventricular diastolic dysfunction with an LV EDP of 21 mmHg. Recommendations * Continue current medical management and risk factor modification. Diagnostic RX Recommendation: medical therapy and/or counseling LV EDP: 21 mmHg Ventriculography Ejection Fraction: 45.0 % Left Ventriculography Findings: * The LV gram was performed in the JENKINS projection. The LV cavity was found to be mildly dilated. There was mild diffuse hypokinesia left ventricle with an ejection fraction of 45 to 50%. There is no severe mitral valve prolapse or mitral regurgitation. The LVEDP was 21 mmHg. Pressures Phase:Rest AO : 121 / 108 ( 110 ) @ 2:28:00 AM 119 / 74 ( 93 ) @ 2:34:00 AM 122 / 69 ( 92 ) @ 2:34:00 AM 112 / 76 ( 90 ) @ 2:36:00 AM 99 / 78 ( 90 ) @ 2:36:00 AM LV : 132 / -2 / @ 2:33:00 AM 136 / -1 / @ 2:34:00 AM 135 / -1 / @ 2:34:00 AM Valves Phase:DefaultPhase AV : 10.0 @ 7:45:02 AM AV Mean Gradient: 10.0 @ 7:45:02 AM 10.0 @ 7:45:02 AM Clinical Evaluation EBL: 5mL-10mL Procedural Details Procedure Consent Obtained. Pre-Procedure Time Out. Identified patient by full name and date of as verbalized by the patient/guarantor. Does the consent match the physician's order: Yes. Accurate & Complete Informed Consent: Yes. Inpatient/Outpatient History & Physical on Chart: Yes. If H&P is completed, is and addenduem needed: N/A; If yes, is the addendum complete: N/A. Visualize and Verify Site with Patient/Guarantor: N/A. Relevant Radiology Images available: Yes. Pre-op teaching completed and patient verbalized understanding. The risks, benefits, and alternatives of sedation and/or procedure were discussed by physician. The patient agrees to continue. Procedure started. PERRLA. Strong, equal hand mobile sales consultant bilaterally. Lungs clear x 5 lobes. IV Site on Arrival: 20 gauge in the left forearm. IV Fluids: 0.9% NaCl at KVO. 0 mL infused prior to catheterization laboratory technician. Pre Procedural Pulses: bilateral dorsalis pedis was 3+. Pre Procedural Pulses: bilateral posterior tibial was 3+. Pre Procedural Pulses: bilateral radial was 3+. Oxygen started at 2liters/min via nasal canula. right groin was prepped with chloroprep then draped in the usual sterile fashion. right radial was prepped with chloroprep then draped in the usual sterile fashion. Physician notified. Equipment: 6F - Radial. Cardiac Cath Pack. ACIST Manifold Kit Model BT 2000. Heparinized Saline (2 units/mL), 1000 mL bag. Physician arrived. Physician scrubbed in. Immediate Pre-Procedure Time Out. Correct Patient: Yes; Correct Procedure: Yes; Correct Site: Yes; Correct Patient Position: Yes; Correct Supplies: Yes; Dried Flammable Prep: Yes; Blood Products Available: No;. Lidocaine 1% infiltrated to the right radial. Baseline sample Acquired. HR: 82 BPM. Arterial access obtained. A 5 trinidadian Loyd catheter in over wire. Multiple views taken of left coronary artery. Catheter redirected to the RCA. Catheter out. A 5 trinidadian Angled Pig catheter in over wire. EDP Sample taken: LV 132/-3,22; HR: 90 BPM; SpO2: 94%. LV gram performed in JENKINS @ 10 mL/second for a total of 30 mL. EDP Sample taken: LV 136/-2,23; HR: 90 BPM; SpO2: 94%. Pullback taken: LV 135/-2,22; AO 119/74(93); Mean: 10mmHg, Peak to Peak: 10mmHg, SEP: 10sec/min; HR: 89 BPM; SpO2: 94%. Catheter out. A 5 trinidadian JR4 catheter in over wire. Multiple views taken of right coronary artery. Catheter out. A TR Band was successful obtaining hemostatsis at the Right Radial artery insertion site. Post Procedure: Pulses reassessed and unchanged. PERRLA. Strong, equal hand mobile sales consultant bilaterally. No VTE prophylaxis required. Medication's Wasted: Heparin = 1000 units. Medication's Wasted: Lidocaine 1% = 18 mL. Medication's Wasted: Nitro = 49.8 mg. Total IV fluids: 300 mL. Fluoro: 43:00. Contrast type used: Omnipaque 300 mgI/mL, 500 mL bottle. [id number]. Post-op diagnosis: cardio myophathy. Complications: none. Estimated blood loss: 5mL-10mL. Procedure completed. [facility] Clinical Fraility Score: 4: Vulnerable. Chest Pain Symptom Assessment: Atypical Angina. Cardiovascular Instability: No. Vital chart was stopped. Patient transferred by wheelchair to 1st floor. Access Site Site: Right Radial artery Sheath Size: 6 Fr Hemostasis Method: TR Band Hemostasis Success: Successful Procedure Medications Start: 7:15 AM Stop: 7:15 AM Medication: 0.9% Saline Amount: 250 ml Route: I.V. bolus Start: 7:15 AM Stop: 7:15 AM Medication: Versed Amount: 1 mg Route: I.V. Start: 7:15 AM Stop: 7:15 AM Medication: Fentanyl Amount: 50 mcg Route: I.V. Start: 7:19 AM Stop: 7:19 AM Medication: Versed Amount: 1 mg Route: I.V. Start: 7:23 AM Stop: 7:23 AM Medication: Fentanyl Amount: 25 mcg Route: I.V. Start: 7:25 AM Stop: 7:25 AM Medication: Verapamil Amount: 5 mg Route: I.A. Start: 7:25 AM Stop: 7:25 AM Medication: Nitrogylcerin Amount: 200 mcg Route: I.A. Start: 7:26 AM Stop: 7: AM Medication: Versed Amount: 1 mg Route: I.V. Start: 7: AM Stop: 7: AM Medication: Fentanyl Amount: 25 mcg Route: I.V. Start: 7:27 AM Stop: 7: AM Medication: Heparin Amount: 5000 units Start: 7:30 AM Stop: 7:30 AM Medication: 0.9% Saline Amount: 75 ml/hr Route: I.V. bolus Start: 7:35 AM Stop: 7:35 AM Medication: Versed Amount: 1 mg Route: I.V. I, the attending physician, have reviewed and verified all procedure medications. Yes, all medications given per verbal order History/Risk Factors Hypertension: Yes Dyslipidemia: Yes Peripheral Arterial Disease (PAD): No Myocardial Infarction (PA): No Obesity: No Renal Disease: No Tobacco Use: Former Prior Interventions PCI: No CABG: No Valve Surgery: No Report Signatures Finalized by Dr Ever Emerson MD [facility] on 03/17/2020 09:31 PM
[2020-03-17] MEDS: diphenhydrAMINE 50 mg Capsule PO (06:33)
--- NOTE | 2020-03-17 06:53 | PM.HP ---
Providers/Chief Complaint Admitting Physician: TAYE Emerson MD Primary Care Provider: Kaylee Lopez MD Chief Complaint: Cardiomyopathy History of Present Illness Guy Duque is a 59 year old male with a history of hypertension, dyslipidemia, smoking abuse, is presenting with complaints of chest pain, easy fatigability and tiredness. He has a family history for premature atherosclerotic heart disease. He also has been having shortness of breath with activities. He had an echocardiogram which revealed diffuse hypokinesia of the left ventricle with ejection fraction of 35 to 40%. In view of the patient's ongoing symptoms and the abnormal echocardiogram, in order to further evaluate his coronary status, a cardiac catheterization was recommended. He had an exercise sestamibi stress test which was unremarkable. Review of Systems Narrative: CONSTITUTIONAL: No fever or chills. Exertional fatigue and dyspnea on exertion as mentioned above EYES: No blurring of vision or other visual disturbances lately. ENT: No hoarseness of voice, auditory disturbances or sore throat. CARDIOVASCULAR: As mentioned above. RESPIRATORY: Exertional dyspnea. GASTROINTESTINAL: No hematemesis or melena. GENITOURINARY: No dysuria or hematuria. INTEGUMENTARY: No skin rashes or history of skin cancer. NEURO: No transient ischemic attacks or amaurosis. PSYCHIATRIC: No history of psychosis or major depression. HEMATOLOGIC: No bleeding disorders or significant anemia. ENDOCRINE: No history of polyuria or polydipsia. MUSCULOSKELETAL: No recent joint pain or swelling. ALLERGY/IMMUNOLOGY: As mentioned above. Medications/Allergies Home Medications Medication Instructions Recorded Confirmed Last Taken Type omeprazole 40 mg PO DAILY PRN 07/29/19 03/17/20 01/10/20 History multivitamin [Multiple Vitamins] 1 tab PO QAM 07/30/19 03/17/20 03/16/20 07:00 History alprazolam 0.5 mg PO Q4H PRN 01/10/20 03/17/20 01/10/20 History venlafaxine 37.5 mg PO QAM 01/10/20 03/17/20 03/16/20 07:00 History saw palmetto fruit 450 mg capsule 450 mg PO QAM 02/05/20 03/17/20 03/16/20 07:00 History upadacitinib 15 mg tablet,extended 30 mg PO QAM 02/05/20 03/17/20 03/16/20 07:00 History release 24 hr sildenafil 100 mg tablet 100 mg PO DAILY PRN #20 tab 02/06/20 03/17/20 Unknown Rx amlodipine 2.5 mg PO QAM 03/16/20 03/17/20 03/16/20 07:00 History pyridoxine (vitamin B6) [Vitamin 100 mg PO QAM 03/16/20 03/17/20 03/16/20 07:00 History B-6] tamsulosin 0.4 mg PO QAM 03/16/20 03/17/20 03/16/20 07:00 History verapamil 120 mg PO QAM 03/16/20 03/17/20 03/16/20 07:00 History Allergies Allergy/AdvReac Type Severity Reaction Status Date / Time ketorolac [From Toradol] Allergy ALGY-Swell Verified 03/17/20 06:50 Lip/Tongue/Throat PFSH Acute PFSH: Medical History (Updated 03/17/20 @ 07:14 by Ever Emerson MD) Anxiety Atypical chest pain BPH loc w urin obs/LUTS Cardiomyopathy Crohn's disease Dyslipidemia (high LDL; low HDL) Elevated PSA Erectile dysfunction HTN (hypertension) Renal insufficiency SOB (shortness of breath) Surgical History Hx of detached retina repair BILATERAL Hx of hernia repair Family History Father , at age 81 Cancer Diabetes Mother Cancer Social History Quit status (tobacco): has quit using tobacco Former quit date comment: PPD x 30 yrs Second hand smoke exposure: No Alcohol intake: current Alcohol intake frequency: holidays/special occasions only Lives independently: No Household members: spouse Marital status: Current occupational status: disabled History of recent travel: No Current gender identity: Male Vitals/I&O/Wt Last Vital Signs Temp 98.3 F 03/17/20 06:34 Pulse 78 03/17/20 06:34 Resp 17 03/17/20 06:34 BP 143/100 03/17/20 06:34 Pulse Ox 97 03/17/20 06:34 Weight last 48 hrs Weight 219 lb Weight 219 lb Physical Exam Narrative: EXAM NARRATIVE: GENERAL: The patient is alert and oriented times three. Not in any acute distress. HEENT: No significant pallor, icterus or lymphadenopathy.Oral cavity: There are no mucous membrane lesions. NECK: Trachea appears to be central. No masses noted. No JVD or thyromegaly appreciated. RESPIRATORY: Chest is symmetrical. No intercostals muscle retraction or any accessory muscle activation. There is no chest wall tenderness. Breath sounds are heard bilaterally. No rales or rhonchi heard. No evidence of any consolidation. BREASTS: Deferred. HEART: The heart sounds are normal. No S3 or S4. No significant murmurs. No pericardial rub ABDOMEN: No vessel pulsations or distention. No tenderness. No organomegaly appreciated. Bowel sounds are normally heard. : Deferred. RECTAL: Deferred. LYMPHATIC: No lymphadenopathy noted in the neck or groin. EXTREMITIES: No edema or cyanosis. No clubbing. Peripheral pulses are palpated in fairly good volume and amplitude MUSCULOSKELETAL: No acute joint deformities or swelling SKIN: There are no significant rashes or ecchymosis NEUROPSYCHIATRIC: The patient is alert and oriented x3. Appears to be in a good mood. No tremors or rigidity noted. A&P Assessment and plan (1) SOB (shortness of breath): Most likely from the LV dysfunction. Currently ischemia is a consideration. Status: Acute (2) Atypical chest pain: Even though the myocardial perfusion imaging is unremarkable, in view of the LV dysfunction and the multiple risk factors, possibility of underlying coronary ischemia causing this is a strong consideration. For further evaluation of the patient symptoms, a cardiac catheterization would be appropriate. The risk of bleeding, hematoma, vascular injury, myocardial infarction, CVA, renal failure and other concomitant complications were explained in detail. Patient understood this well and consented to proceed. Status: Acute (3) Dyslipidemia (high LDL; low HDL): Currently on the current medications. Status: Acute (4) HTN (hypertension): Currently the blood pressure is a stage II. We will try to optimize medical treatment. Status: Acute Qualifiers: Hypertension type: essential hypertension Qualified Code(s): I10 - Essential (primary) hypertension (5) Cardiomyopathy: Etiology is not clear. Coronary ischemia is a strong consideration. Status: Acute Qualifiers: Cardiomyopathy type: other Qualified Code(s): I42.8 - Other cardiomyopathies (6) Renal insufficiency: Patient is advised today plenty of oral fluids at home. We also may carefully hydrate him. Patient understands the high risk of contrast-induced nephropathy. Status: Acute Additional A&P Information Based on the results of the above and also patient's clinical progress, further management decisions will be made. Attestations Medical Necessity Statement*: Patient will be admitted to the hospital for observation because of the renal insufficiency. Will be carefully hydrated. Recheck renal function in the morning. Coding Level of Care Code Acute Central Office Equipment Engineer for g Fwd Diagnoses SOB (shortness of breath) R06.02 Atypical chest pain R07.89 Dyslipidemia (high LDL; low HDL) E78.5 HTN (hypertension) I10 Hypertension type: essential hypertension Cardiomyopathy I42.8 Cardiomyopathy type: other Renal insufficiency N28.9
--- NOTE | 2020-03-17 07:13 | W.PM.OPSUD ---
Surgery/Procedure H&P Update DATE OF PROCEDURE: March 17, 2020 DATE H&P PERFORMED: 03/17/20 PREOP DIAGNOSIS: Chest pain/cardiomyopathy PLANNED PROCEDURE: Operation Date: 03/17/20 07:00 Proposed Procedures p Cardiac Catheterization(Not Applicable) - Ever Emerson MD PATIENT REASSESSED PRIOR TO SEDATION, WITH NO CHANGE NOTED: Yes PHYSICAL EXAM: alert, oriented x 3, clear to auscultation bilaterally and regular rate & rhythm AIRWAY EVAL/ANESTHESIA PLAN: normal airway, see other exam findings, ASA III, Risks, benefits & alternatives of sedation and/or procedure discussed and Patient agrees to continue as planned
[2020-03-17] MEDS: sodium chloride 0.9% 1,000 ML 100 ML IV (08:00)
--- NOTE | 2020-03-17 08:00 | PC.NURSE ---
From director of cardiac cath lab Received pt via wheelchair. Pt is alert, awake, oriented. Denies any chest pain or discomfort. not in distress. Tr band intact. no hematoma, swelling or bleeding. radial pulse is palpable +3. Instructed pt on activity restrictions on right arm. Pt verbalizes understanding. Call light within reach.
--- NOTE | 2020-03-17 12:00 | PC.NURSE ---
TR band off No hematoma, swelling, bleeding noted. Radial pulse is palpable +3. Instructed pt on activity restrictions on right arm. Pt tolerated well.
[2020-03-17] MEDS: carvedilol 3.125 mg Tablet PO (18:24)
[2020-03-17] MEDS: acetaminophen 325 mg Tablet 650 MG PO (19:41)
--- NOTE | 2020-03-17 20:25 | PC.NURSE ---
Rounding: Patient is resting in bed. Patient dressing to R wrist is clean dry and intact no hematoma. Patient remains alert and oriented.
[2020-03-18 04:41] VITALS: BP 139/84; PULSE 74; RESP 15; TEMP 36.8; O2SAT 98
[2020-03-18 05:56] LABS: Anion Gap 13.8 (5-19); Blood Urea Nitrogen 17 mg/dL (8-23); Calcium 8.6 mg/dL (8.5-10.5); Carbon Dioxide 24 mmol/L (22-29); Chloride 105 mmol/L (98-107); Glomerular Filtration Rate 51.5 mL/min (90-130); Glucose 94 mg/dL (65-115); Osmolality Calculated 289 mOsm/kg (285-295); Potassium 3.8 mmol/L (3.5-5.1); Sodium 139 mmol/L (136-145)
[2020-03-18] MEDS: pyridoxine 50 mg Tablet 100 MG PO (06:18)
[2020-03-18] MEDS: tamsulosin 0.4 mg Capsule PO (06:18)
[2020-03-18] MEDS: venlafaxine ER (24HR) 37.5 mg Capsule PO (06:18)
[2020-03-18] MEDS: amlodipine 5 mg Tablet 2.5 MG PO (06:19)
--- NOTE | 2020-03-18 07:19 | PC.NURSE ---
Vitamin B-6 brought from pharmacy and not pulled from [employer]. 1 pill dropped on the floor and wasted.
--- NOTE | 2020-03-18 09:41 | PM.DCS ---
Discharge Providers Date of Discharge: March 18, 2020 Attending Provider at Discharge: Ever Emerson MD Primary Care Provider: Kaylee Lopez MD Diagnoses at Discharge Discharge Diagnosis (1) SOB (shortness of breath): Status: Acute Problem details: Patient is mainly complaining of dyspnea on exertion. The symptoms are improving at this time. (2) Atypical chest pain: Status: Acute Problem details: The chest pain is mostly resolved at this time. (3) Dyslipidemia (high LDL; low HDL): Status: Acute Problem details: We will go ahead and do a lipid profile on the blood in the lab. The need for medication will be decided afterwards. (4) HTN (hypertension): Status: Acute Problem details: Patient has a history of essential benign hypertension. Qualifiers: Hypertension type: essential hypertension Qualified Code(s): I10 - Essential (primary) hypertension (5) Cardiomyopathy: Status: Acute Problem details: Elevation fraction about 35 to 40% by echocardiogram. Based on the left ventricular angiogram, seems to be around 45 to 50% at this time Qualifiers: Cardiomyopathy type: other Qualified Code(s): I42.8 - Other cardiomyopathies (6) Renal insufficiency: Status: Acute Problem details: This is chronic and seems to be stable at this time Reason for Visit Reason for Visit: Cardiomyopathy Hospital Course Discharge Summary: Patient was admitted to hospital following his cardiac catheterization, for IV hydration and close monitoring. He was treated with IV normal saline. He remained stable with no evidence of any heart failure. His vital signs remained stable. He was started on carvedilol 3.125 mg p.o. twice daily in place of the verapamil. He tolerated the medication well. No bleeding complications. Since the patient remained stable with no new symptoms, he is being discharged home today Physical Exam Narrative: EXAM NARRATIVE: GENERAL: The patient is alert and oriented times three. Not in any acute distress. HEENT: No significant pallor, icterus or lymphadenopathy.Oral cavity: There are no mucous membrane lesions. NECK: Trachea appears to be central. No masses noted. No JVD or thyromegaly appreciated. RESPIRATORY: Chest is symmetrical. No intercostals muscle retraction or any accessory muscle activation. There is no chest wall tenderness. Breath sounds are heard bilaterally. No rales or rhonchi heard. No evidence of any consolidation. BREASTS: Deferred. HEART: The heart sounds are normal. No S3 or S4. No significant murmurs. No pericardial rub ABDOMEN: No vessel pulsations or distention. No tenderness. No organomegaly appreciated. Bowel sounds are normally heard. : Deferred. RECTAL: Deferred. LYMPHATIC: No lymphadenopathy noted in the neck or groin. EXTREMITIES: No edema or cyanosis. No clubbing. Peripheral pulses are palpated in fairly good volume and amplitude MUSCULOSKELETAL: No acute joint deformities or swelling SKIN: There are no significant rashes or ecchymosis NEUROPSYCHIATRIC: The patient is alert and oriented x3. Appears to be in a good mood. No tremors or rigidity noted. Const: COMMON NORMALS: alert Resp: COMMON NORMALS: clear to auscultation bilaterally AUSCULTATION: clear to auscultation bilaterally Neuro: SENSORIUM/ORIENTATION: Yes alert Discharge Data Data Completed and Pending: Completed Studies During Hospitalization Category Date Time Status [facility] NURSING DIRECTOR request for service Routin e Exams 03/17/20 06:00 Completed Labs from last 24 hours 03/18/20 04:40 Sodium 139 Potassium 3.8 Chloride 105 Carbon Dioxide 24 Anion Gap 13.8 BUN 17 Creatinine 1.4 H GFR Calculation 51.5 L Glucose 94 Calculated Osmolal ity 289 Calcium 8.6 Vitals: Last Vital Signs Temp 98.3 F 03/18/20 04:41 Pulse 74 03/18/20 04:41 Resp 15 03/18/20 04:41 BP 139/84 03/18/20 04:41 Pulse Ox 98 03/18/20 04:41 Discharge Plan Discharge Patient Disposition: Home Condition: Stable Prescriptions: New carvedilol 6.25 mg tablet 6.25 mg PO BID 30 Days Qty: 60 RF: 5 Continued saw palmetto fruit 450 mg capsule 450 mg PO QAM RF: 0 upadacitinib 15 mg tablet extended release 24 hr 30 mg PO QAM RF: 0 sildenafil 100 mg tablet 100 mg PO DAILY PRN (Reason: sexual activity) Qty: 20 RF: 3 omeprazole 40 mg Capsule,Delayed Release(Dr/Ec) 40 mg PO DAILY PRN (Reason: Acid Reflux) RF: 0 venlafaxine 37.5 mg Capsule,Extended Release 24hr 37.5 mg PO QAM RF: 0 alprazolam 0.5 mg tablet 0.5 mg PO Q4H PRN (Reason: Anxiety) RF: 0 multivitamin [Multiple Vitamins] Tablet 1 tab PO QAM RF: 0 pyridoxine (vitamin B6) [Vitamin B-6] 100 mg Tablet 100 mg PO QAM RF: 0 amlodipine 2.5 mg tablet 2.5 mg PO QAM RF: 0 tamsulosin 0.4 mg capsule 0.4 mg PO QAM RF: 0 Discontinued verapamil 120 mg Tablet 120 mg PO QAM RF: 0 Discharge Orders: Discharge Order (Routine); Ordered 03/18/20 Ordered By: Ever Emerson Patient Instructions: Left Heart Catheterization (DC) Activity Restrictions/Additional Instructions: Patient advised to take medications as prescribed. Please make an appointment to be seen at the heart care services in a week by the nurse practitioner Please make an appointment to be seen by me in 3 weeks in the office Coding Level of Care Code Acute Restaurant Host for g Fwd Diagnoses SOB (shortness of breath) R06.02 Atypical chest pain R07.89 Dyslipidemia (high LDL; low HDL) E78.5 HTN (hypertension) I10 Hypertension type: essential hypertension Cardiomyopathy I42.8 Cardiomyopathy type: other Renal insufficiency N28.9
[2020-03-18] MEDS: carvedilol 3.125 mg Tablet PO ×2 (09:54→10:23)
[2020-03-18] MEDS: multivitamin therapeutic Tablet 1 TAB PO (09:54)
[2020-03-18] MEDS: pantoprazole DR 40 mg Tablet PO (09:55)
--- NOTE | 2020-03-18 10:07 | PC.NURSE ---
Pt discussed with Dr Emerson that Losartan worsened his Crohn's Disease symptoms. Dr layne make med changes. Med still on profile to administer. Dr Emerson called. Order to discontinue. Order to increase Coreg to 6.25 BID.
[2020-03-18 10:16] LABS: Chol HDL Ratio 3.44 mg/dL (1.0-5.00); Cholesterol 179 mg/dL (0-200); HDL Cholesterol 52 mg/dL (60-100); LDL Cholesterol Calculated 71 mg/dL (50-129); LDL HDL Ratio 1.37 RATIO (0.00-3.22); Triglycerides 280 mg/dL (0-150)
[2020-03-18 12:45] VITALS: PULSE 109; O2SAT 98
[2020-03-18 15:19] VITALS: PULSE 109; O2SAT 98
--- NOTE | 2020-03-18 16:09 | PC.NURSE ---
Addendum entered by Nimco Kaminski RN 03/18/20 16:22: Note timed for 1215 Original Note: Pt escorted to private vehicle. present. Both denies questions or needs. Discharge instructions reiterated specifically wt restrictions and S/S to watch for. Advised to call for questions.
== END 2020-03-18 12:30 | disposition home or self-care (01) ==
LOC: CCL 07:01 → CSU 08:15
PROVIDERS: PCP Family Medicine; Visit Provider Internal Medicine Cardiovascular Disease
DX: R06.02 Shortness of breath (principal); R07.89 Other chest pain; E78.5 Hyperlipidemia, unspecified; I10 Essential (primary) hypertension; I42.8 Other cardiomyopathies; N28.9 Disorder of kidney and ureter, unspecified; F41.9 Anxiety disorder, unspecified; N40.1 Benign prostatic hyperplasia with lower urinary tract symptoms; N13.8 Other obstructive and reflux uropathy; Z87.891 Personal history of nicotine dependence; Z82.49 Family history of ischemic heart disease and other diseases of the circulatory system
CPT/HCPCS: 12345; 36415; 80048; 80061; 90471; 90686; 93452; C1769; C1887; C1894; J1644; J2250; J3010; J3490; J7030; Q0163; Q9967

== ENCOUNTER → 2020-03-26 15:05 | Outpatient (BNVA) | payer BC, SELFPAY | PROVIDERS: PCP Family Medicine; Visit Provider Nurse Practitioner Family | DX: I42.8 Other cardiomyopathies (principal); I10 Essential (primary) hypertension | CPT/HCPCS: 80048 ==

== ENCOUNTER → 2020-05-20 10:20 | Outpatient (BNVA) | payer BC, SELFPAY | PROVIDERS: PCP Family Medicine; Visit Provider Urology | DX: N40.1 Benign prostatic hyperplasia with lower urinary tract symptoms (principal); R97.20 Elevated prostate specific antigen [PSA]; N52.1 Erectile dysfunction due to diseases classified elsewhere | CPT/HCPCS: 81003; 84153 ==

== ENCOUNTER → 2020-07-22 10:13 | Outpatient (BNVA) | payer BC, SELFPAY | PROVIDERS: PCP Family Medicine; Visit Provider Internal Medicine Cardiovascular Disease | DX: E78.5 Hyperlipidemia, unspecified (principal); N28.9 Disorder of kidney and ureter, unspecified; R06.02 Shortness of breath | CPT/HCPCS: 80048; 83880 ==

== ENCOUNTER 2020-11-10 14:11 | Observation (INO) | payer BC, SELFPAY ==
[2020-11-10 14:19] VITALS: BP 137/89; PULSE 105; RESP 18; TEMP 36.8; O2SAT 95; BMI 33.3
--- NOTE | 2020-11-10 15:34 | ECG_ITS ---
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 Measurements Intervals [place] Rate: 85 P: 25 IL: 181 QRS: -40 QRSD: 95 T: 17 QT: 374 QTc: 445 Interpretive Statements SINUS RHYTHM MARKED LEFT AXIS DEVIATION [QRS AXIS < -30] PATTERN CONSISTENT WITH PULMONARY DISEASE Compared to ECG 07/30/2019 11:49:50 Ventricular premature complex(es) no longer present Electronically Signed On 11-10-2020 17:25:03 CDT by Ryan Turner M.D. [id number]
--- NOTE | 2020-11-10 15:35 | ED_ITS ---
HPI - Recheck/Abnormal Lab/Rx General: Chief Complaint: Recheck/Abnormal Lab/Rx Stated Complaint: DR SENT TO ER STATING MAGNESIUM IS LOW Time Seen by Provider: 11/10/20 15:25 History of Present Illness: HPI narrative: 58-year-old male presents to the emergency room at the direction of her PCP for low magnesium. Patient states he has had muscle cramping for the last year. Patient was on hydrochlorothiazide but that was recently stopped. He is not taking any potassium or MD complaint: abnormal lab Initial visit (ago): day(s) Associated symptoms: other (Muscle cramps) Review of Systems Const: Denies: fever(s), chills, body aches, change in appetite, fatigue or malaise ENMT: Denies: throat pain, ear or mastoid pain, nasal discharge or nasal congestion Card: Denies: chest pain, edema, dyspnea on exertion or orthopnea Resp: Denies: dyspnea, productive cough or non-productive cough GI: Denies: abdominal pain, nausea, vomiting, hematemesis, coffee ground emesis, diarrhea, constipation, bloating, hematochezia or melena : Denies: flank pain, dysuria, urinary frequency or urinary urgency Skin/Breast: Denies: rash or pruritus PFSH ED PFSH: Medical History (Updated 11/12/20 @ 07:00 by Nash Maynard DO) Anxiety Atypical chest pain The chest pain is mostly resolved at this time. BPH loc w urin obs/LUTS Cardiomyopathy Elevation fraction about 35 to 40% by echocardiogram. Based on the left ventricular angiogram, seems to be around 45 to 50% at this time-03/17/2020 Crohn's disease Dyslipidemia (high LDL; low HDL) Elevated PSA Erectile dysfunction History of nonmelanoma skin cancer HTN (hypertension) Patient has a history of essential benign hypertension. Renal insufficiency This is chronic and seems to be stable at this time SOB (shortness of breath) Patient is mainly complaining of dyspnea on exertion. The symptoms are improving at this time. Surgical History Hx of detached retina repair BILATERAL Hx of hernia repair Family History Father , at age 81 Cancer Diabetes Clotting disorder Stroke Mother Cancer Denies family history of CAD (coronary artery disease) Dementia Chronic kidney disease (CKD) Suicide Anesthesia complication Bleeding disorder Lung disease Social History Quit status (tobacco): has quit using tobacco Former quit date comment: PPD x 30 yrs Second hand smoke exposure: No Alcohol intake: current Alcohol intake frequency: holidays/special occasions only Lives independently: No Household members: spouse Marital status: Current occupational status: disabled History of recent travel: No Current gender identity: Male Physical Exam Const: COMMON NORMALS: no acute distress GENERAL APPEARANCE: cooperative and comfortable ORIENTATION/CONSCIOUSNESS: Yes awake, Yes oriented to person, Yes oriented to place and Yes oriented to time HENMT: COMMON NORMALS: normocephalic, atraumatic, hearing grossly normal bilaterally and external ears normal HEAD & SCALP: normocephalic and atraumatic EXTERNAL EAR: Yes external ears normal Eye: COMMON NORMALS: Equal, round and reactive pupils present, EOMs intact bilaterally, conjunctivae normal and no scleral icterus CONJUNCTIVA: Yes conjunctivae normal PUPIL: Yes Equal, round and reactive pupils present Neck/C-Spine: COMMON NORMALS: full ROM, no lymphadenopathy, supple and no JVD Lymph: LYMPHATIC: no lymphadenopathy noted and no lymphedema noted Resp: COMMON NORMALS: normal respiratory effort, No retractions, No use of accessory muscles and clear to auscultation bilaterally AUSCULTATION: clear to auscultation bilaterally Cardio: COMMON NORMALS: no JVD, regular rate, regular rhythm and No murmurs present (Cardio) RATE: regular rate RHYTHM: regular rhythm GI: COMMON NORMALS: Soft to palpation and No hepatosplenomegaly present AUSCULTATION: Yes normoactive bowel sounds PALPATION: Yes Soft to palpation, No Tenderness to palpation present (GI), No Guarding due to palpation present (GI) and Yes No hepatosplenomegaly present Extremity: COMMON NORMALS: normal to inspection, capillary refill normal, no clubbing, cyanosis or edema, no calf tenderness and no pedal edema Neuro: SENSORIUM/ORIENTATION: Yes oriented to person, Yes oriented to place and Yes oriented to time Skin: COMMON NORMALS: no rashes or lesions noted GENERAL SKIN EXAM: no rashes or lesions noted Course Vital Signs: Vital signs: Vital Signs Temperature 98.6 F 11/12/20 04:00 Pulse Rate 82 06/17/21 04:00 Respiratory Rate 15 11/12/20 04:00 Blood Pressure 135/84 11/12/20 06:14 Pulse Oximetry 98 11/12/20 04:00 MDM - Recheck/Abnormal Lab/Rx MDM Narrative: Medical decision making narrative: Patient has significant hypomagnesium Cindy with secondary hypocalcemia. Discussed with hospitalist and with patient will admit for electrolyte replacement. Lab Data: Labs: Lab Results 11/10/20 11/10/20 11/10/20 Range/Units 16:23 16:32 16:32 WBC 6.5 (4.0-10.0) 10^3/ uL RBC 4.64 (4.1-5.3) 10^6/u L Hgb 12.8 (11.7-16.6) g/dL Hct 41.6 L (42.0-52.0) % MCV 89.7 (80-94) fL MCH 27.6 L (28.0-34.0) pg MCHC 30.8 (30.0-36.0) g/dL RDW 15.0 (12.1-15.1) % Plt Count 331 (130-400) 10^3/c mm MPV 8.6 (7.4-10.4) fL Neut % (Auto) 63.0 % Lymph % (Auto) 13.9 % [place] % (Auto) 15.3 % Eos % (Auto) 6.3 % Baso % (Auto) 1.2 % Neut # (Auto) 4.11 (1.8-7.7) 10^3/u L Lymph # (Auto) 0.9 (0.8-4.8) 10^3/u L [place] # (Auto) 1.0 H (0.2-0.9) 10^3/u L Eos # (Auto) 0.4 (0.0-0.8) 10^3/u L Baso # (Auto) 0.1 (0.0-0.1) 10^3/u L Nucleated RBC % (a uto) 0 % Nucleated RBCs # 0.0 /100WBC Sodium 143 (136-145) mmol/L Potassium 4.1 (3.5-5.1) mmol/L Chloride 104 (98-107) mmol/L Carbon Dioxide 27 (22-29) mmol/L Anion Gap 16.1 (5-19) BUN 15 (8-23) mg/dL Creatinine 1.2 (0.7-1.2) mg/dL GFR Calculation 61.3 L (90-130) mL/min Glucose 90 (65-115) mg/dL Calculated Osmolal ity 296 H (285-295) mOsm/k g Calcium 6.2 L (8.5-10.5) mg/dL Ionized Calcium Me as (1.1-1.4) mmol/L Magnesium 0.8 L* (1.7-2.3) mg/dL Total Bilirubin (0.15-1.2) mg/dL Direct Bilirubin (0.00-0.30) mg/d L AST (0-40) U/L ALT (0-41) U/L Alkaline Phosphata se (40-130) IU/L Total Protein (6.6-8.7) g/dL Albumin (3.5-5.2) g/dL Globulin (1.3-4.6) g/dL 25-OH Vitamin D To dianelys (30-100) ng/mL TSH (0.27-4.20) uIU/ mL PTH Intact Cancelled Calcium (PTH Intac t) Cancelled Urine Color (Yellow) Urine Appearance (CLEAR) Urine pH (5-7) Ur Specific Gravit y (1.005-1.030) Urine Protein (Negative) Urine Glucose (UA) (Normal) Urine Ketones (Negative) Urine Blood (Negative) Urine Nitrate (Negative) Urine Bilirubin (Negative) Urine Urobilinogen (Negative) mg/dL Ur Leukocyte Lorraine ase (Negative) 11/10/20 11/10/20 Range/Units 16:32 16:41 WBC (4.0-10.0) 10^3/ uL RBC (4.1-5.3) 10^6/u L Hgb (11.7-16.6) g/dL Hct (42.0-52.0) % MCV (80-94) fL MCH (28.0-34.0) pg MCHC (30.0-36.0) g/dL RDW (12.1-15.1) % Plt Count (130-400) 10^3/c mm MPV (7.4-10.4) fL Neut % (Auto) % Lymph % (Auto) % [place] % (Auto) % Eos % (Auto) % Baso % (Auto) % Neut # (Auto) (1.8-7.7) 10^3/u L Lymph # (Auto) (0.8-4.8) 10^3/u L [place] # (Auto) (0.2-0.9) 10^3/u L Eos # (Auto) (0.0-0.8) 10^3/u L Baso # (Auto) (0.0-0.1) 10^3/u L Nucleated RBC % (a uto) % Nucleated RBCs # /100WBC Sodium (136-145) mmol/L Potassium (3.5-5.1) mmol/L Chloride (98-107) mmol/L Carbon Dioxide (22-29) mmol/L Anion Gap (5-19) BUN (8-23) mg/dL Creatinine (0.7-1.2) mg/dL GFR Calculation (90-130) mL/min Glucose (65-115) mg/dL Calculated Osmolal ity (285-295) mOsm/k g Calcium (8.5-10.5) mg/dL Ionized Calcium Me as 0.8 L (1.1-1.4) mmol/L Magnesium (1.7-2.3) mg/dL Total Bilirubin 0.2 (0.15-1.2) mg/dL Direct Bilirubin 0.20 (0.00-0.30) mg/d L AST 41 H (0-40) U/L ALT 26 (0-41) U/L Alkaline Phosphata se 67 (40-130) IU/L Total Protein 6.5 L (6.6-8.7) g/dL Albumin 3.8 (3.5-5.2) g/dL Globulin 2.7 (1.3-4.6) g/dL 25-OH Vitamin D To dianelys 27 L (30-100) ng/mL TSH 1.64 (0.27-4.20) uIU/ mL PTH Intact Calcium (PTH Intac t) Urine Color Yellow (Yellow) Urine Appearance Clear (CLEAR) Urine pH 5 (5-7) Ur Specific Gravit y 1.015 (1.005-1.030) Urine Protein Neg (Negative) Urine Glucose (UA) Norm (Normal) Urine Ketones Negative (Negative) Urine Blood Neg (Negative) Urine Nitrate Negative (Negative) Urine Bilirubin Neg (Negative) Urine Urobilinogen Norm (Negative) mg/dL Ur Leukocyte Lorraine ase Negative (Negative) Discharge Plan Discharge Patient Disposition: Admitted As Inpatient Admit Provider: Keshawn Herron Clinical Impression: Hypomagnesemia with secondary hypocalcemia, HTN (hypertension) Condition: Stable Coding Level of Care Code ED Desktop Support Consultant for Chg Fwd Exam Comprehensive
[2020-11-10 16:43] LABS: Basophils # 0.1 10^3/uL (0.0-0.1); Basophils % 1.2 %; Eosinophils # 0.4 10^3/uL (0.0-0.8); Eosinophils % 6.3 %; Hematocrit 41.6 % (42.0-52.0); Hemoglobin 12.8 g/dL (11.7-16.6); Lymphocytes # 0.9 10^3/uL (0.8-4.8); Lymphocytes % 13.9 %; Mean Corpuscular HGB Conc 30.8 g/dL (30.0-36.0); Mean Corpuscular Hemoglobin 27.6 pg (28.0-34.0); Mean Corpuscular Volume 89.7 fL (80-94); Mean Platelet Volume 8.6 fL (7.4-10.4); Monocytes % 15.3 %; Neutrophils # 4.11 10^3/uL (1.8-7.7); Nucleated Red Blood Cells % 0 %; Platelet Count 331 10^3/cmm (130-400); Red Blood Count 4.64 10^6/uL (4.1-5.3); White Blood Count 6.5 10^3/uL (4.0-10.0)
[2020-11-10 17:00] LABS: Add Urine Microscopic? NO; Charge for UA Resulting for Rev
[2020-11-10 17:11] LABS: Bilirubin Urine Neg (Negative); Blood Urine Neg (Negative); Glucose Urine UA Norm (Normal); Ketones Urine Negative (Negative); Nitrate Urine Negative (Negative); Protein Urine Neg (Negative); Specific Gravity, Urine 1.015 (1.005-1.030); Urine Appearance Clear (CLEAR); Urine Color Yellow (Yellow); pH Urine 5 (5-7)
[2020-11-10 17:12] LABS: Leukocyte Esterase Urine Negative (Negative); Urobilinogen Urine Norm (Negative)
[2020-11-10 17:37] LABS: Anion Gap 16.1 (5-19); Blood Urea Nitrogen 15 mg/dL (8-23); Calcium 6.2 mg/dL (8.5-10.5); Carbon Dioxide 27 mmol/L (22-29); Chloride 104 mmol/L (98-107); Glomerular Filtration Rate 61.3 mL/min (90-130); Glucose 90 mg/dL (65-115); Osmolality Calculated 296 mOsm/kg (285-295); Potassium 4.1 mmol/L (3.5-5.1); Sodium 143 mmol/L (136-145)
[2020-11-10] MEDS: magnesium sulfate premix 2 GM/50 ML PIGGYBACK IV (17:37)
[2020-11-10 17:56] LABS: Magnesium 0.8 mg/dL (1.7-2.3)
--- NOTE | 2020-11-10 17:57 | PC.NURSE ---
Critical Magnesium 0.[address] Maynard.
--- NOTE | 2020-11-10 18:47 | XRR_ITS ---
PROCEDURE INFORMATION: Exam: XR Chest Exam date and time: 11/10/2020 6:47 PM Age: 60 years old Clinical indication: Other: Wheezing/ body cramps; Additional info: Wheeze/rhonchi left lung s/pcovid TECHNIQUE: Imaging protocol: XR of the chest. Views: 2 views. COMPARISON: SR XR chest 2V* [id number] 01/23/2020 5:33 PM FINDINGS: Lungs: There is focal lower lung opacity projecting over the spine on the lateral view. This is not seen on the frontal view. Pleural spaces: There is no pleural effusion or pneumothorax. Heart/Mediastinum: Cardiomediastinal contours are unremarkable. Bones/joints: Bones are unremarkable. XR/XR chest 2V* [id number] IMPRESSION: Mild nonspecific lower lung opacities suggest subsegmental atelectasis.
--- NOTE | 2020-11-10 19:08 | PM.HP ---
Providers/Chief Complaint Admitting Physician: Keshawn Herron DO Primary Care Provider: Kaylee Lopez MD Chief Complaint: DR SENT TO ER STATING MAGNESIUM IS LOW History of Present Illness Guy Duque is a 60 year old male with a 6-year history of Crohn's disease. He has been tried on multiple infusions without success. He is currently on a clinical trial out of [place]; he had his first infusion recently. Patient has chronic watery diarrhea due to his Crohn's disease. He says on a good day he has 4-5 bowel movements and on a bad day over 10. He has had a similar circumstance to his presentation today with muscle cramps about a year ago when he was found to be dehydrated. He has known that he has had low magnesium in the past and just recently heard that he had a low calcium while in [place]; however, no treatment was offered at the time. He has been having severe muscle cramps of his entire body for months now. He states that these whole body cramps are worse than the Crohn's disease itself. Interestingly patient states he has been eating a lot of bananas try to be more healthy. He states that his other physicians have not understood these muscle cramps and did not look any further than Crohn's. He actually was sent to the emergency department due to his labs of magnesium of 0.8 and calcium 6.0 Review of Systems Const: Denies: fever(s) or chills Eyes: Denies: change in vision ENMT: Denies: throat pain or nasal congestion Card: Denies: chest pain or palpitations Resp: Denies: dyspnea or productive cough GI: Denies: abdominal pain, nausea, vomiting or change in stool character : Denies: difficulty urinating or dysuria Musc: Denies: back pain or extremity pain Skin/Breast: Denies: rash or lesions Neuro: Denies: headache(s) or dizziness Psych: Denies: anxiety or depression Charles/Lymph: Denies: easy bruising or easy bleeding Medications/Allergies Home Medications Medication Instructions Recorded Confirmed Last Taken Type omeprazole 40 mg PO DAILY PRN 07/29/19 11/10/20 11/10/20 History multivitamin [Multiple Vitamins] 1 tab PO DAILY@0700 07/30/19 11/10/20 11/10/20 History alprazolam 0.5 mg PO Q4H PRN 08/14/20 06/15/21 08/14/20 History venlafaxine 37.5 mg PO DAILY@0700 01/10/20 11/10/20 11/10/20 History tamsulosin 0.4 mg PO DAILY@0700 03/16/20 11/10/20 11/10/20 History Lennoxyrjackeline See Rx Instructions .ROUTE .COMPLEX 11/10/20 11/10/20 11/05/20 History amlodipine 10 mg PO DAILY@0700 11/10/20 11/10/20 11/10/20 History hydroxyzine HCl 50 mg PO TID PRN 11/10/20 11/10/20 Unknown History losartan 100 mg PO DAILY@0711/10/20 11/10/20 11/10/20 History Allergies Allergy/AdvReac Type Severity Reaction Status Date / Time ketorolac [From Toradol] Allergy ALGY-Swell Verified 11/10/20 14:19 Lip/Tongue/Throat PFSH Acute PFSH: Medical History (Updated 11/10/20 @ 20:02 by Keshawn Herron DO) Anxiety Atypical chest pain The chest pain is mostly resolved at this time. BPH loc w urin obs/LUTS Cardiomyopathy Elevation fraction about 35 to 40% by echocardiogram. Based on the left ventricular angiogram, seems to be around 45 to 50% at this time-03/17/2020 Crohn's disease Dyslipidemia (high LDL; low HDL) Elevated PSA Erectile dysfunction History of nonmelanoma skin cancer HTN (hypertension) Patient has a history of essential benign hypertension. Renal insufficiency This is chronic and seems to be stable at this time SOB (shortness of breath) Patient is mainly complaining of dyspnea on exertion. The symptoms are improving at this time. Surgical History Hx of detached retina repair BILATERAL Hx of hernia repair Family History Father , at age 81 Cancer Diabetes Clotting disorder Stroke Mother Cancer Denies family history of CAD (coronary artery disease) Dementia Chronic kidney disease (CKD) Suicide Anesthesia complication Bleeding disorder Lung disease Social History Quit status (tobacco): has quit using tobacco Former quit date comment: PPD x 30 yrs Second hand smoke exposure: No Alcohol intake: current Alcohol intake frequency: holidays/special occasions only Lives independently: No Household members: spouse Marital status: Current occupational status: disabled History of recent travel: No Current gender identity: Male Vitals/I&O/Wt Last Vital Signs Temp 98.3 F 11/10/20 14:19 Pulse 105 H 11/10/20 14:19 Resp 18 11/10/20 14:19 BP 137/89 11/10/20 14:19 Pulse Ox 95 11/10/20 14:19 Weight last 48 hrs Weight 105.233 kg Physical Exam Narrative: EXAM NARRATIVE: In general, patient appears his stated age of 60 he is morbidly obese with rosacea of the nose. H EENT. Head is normocephalic atraumatic pupils are equal round and reactive to light and accommodation extraocular muscles are intact his nares and pharynx are moist without erythema. His dentition is intact. Neck: no JVD carotid bruits lymphadenopathy or thyromegaly appreciated Lymph: Questionable right axillary lymphadenopathy noted. No other nodes noted in the cervical perpendicular left axillary or inguinal areas. Chest: Rises symmetrically with inspiration no obvious deformity. Heart regular rate and rhythm normal S1-S2 without murmurs clicks gallops or rubs lungs. Very rhonchi and expiratory wheezing heard on the left leg both at base and apical area. Abdomen: Obese soft nontender nondistended no hepatosplenomegaly noted. Extremities: No clubbing cyanosis or edema. I did note muscle spasms particularly in the left index finger during my exam Psychiatric: Patient appears in appropriate mood and affect for condition. Skin: No new lesions or rashes noted. He does have rosacea on the face. Data : 11/10/20 16:32 11/10/20 16:32 A&P Assessment and plan (1) Hypomagnesemia with secondary hypocalcemia: Unclear at this time the cause of this severe deficiency. Patient will require further work-up. I am not convinced this is all attributed to his Crohn's disease. It is interesting to me that his potassium is normal with all the diarrhea he reports. While he is increasing his potassium intake through foods I remain skeptical of Crohn's being the primary etiology. Replace magnesium as follows: Patient received 2 g IV magnesium in the ER. I ordered additional 4 g IV to be given on the floor. I have ordered oral potassium and instructed the patient to look for nonabsorption with tablet possibly being excreted in the stool. Replace calcium. Will start with 1 g of calcium gluconate at this time. And follow. Work-up of electrolyte abnormalities include: Vitamin D level Ionized calcium level Urine calcium level PTH level PTH related protein level STOP PPI-as long-term use can cause severe hypomagnesium. Place the patient on Pepcid orally. May need to decrease as much as possible. Status: Acute (2) Anxiety: He will be placed on Valium 10 mg p.o. tonight for muscle spasm and to enable sleep. Status: Acute (3) Crohn's disease: Patient is on a clinical trial medication. Status: Acute (4) Muscle spasm: Hopeful this will improve as I replace electrolytes. He will receive Valium tonight. Status: Acute (5) Wheezing on auscultation: I ordered a 2 view chest x-ray to evaluate. Status: Acute Attestations Medical Necessity Statement*: Patient placed in observation status. Hopeful charge within 2 midnights Coding Level of Care Code Acute Temp Recruiter for Chg Fwd Diagnoses Hypomagnesemia with secondary hypocalcemia E83.42; E83.51 Anxiety F41.9 Crohn's disease K50.90 Muscle spasm M62.838 Wheezing on auscultation R06.2
[2020-11-10 19:29] VITALS: BP 148/94; PULSE 93; RESP 11; O2SAT 97
--- NOTE | 2020-11-10 19:30 | PC.NURSE ---
Assessment not completed by prior nurse
[2020-11-10 20:43] VITALS: BP 134/82; PULSE 86; RESP 18; TEMP 37.2; O2SAT 92
[2020-11-10] MEDS: diazePAM 5 mg Tablet 10 MG PO (20:58)
[2020-11-10] MEDS: enoxaparin 40 mg/0.4 mL Syringe SUBCUT (20:58)
[2020-11-10] MEDS: magnesium sulfate premix 4 GM/100 ML PREMIX IV (21:28)
[2020-11-10 22:00] VITALS: PULSE 89
[2020-11-10 23:45] LABS: Calcium 6.3 mg/dL (8.5-10.5)
[2020-11-10 23:50] LABS: Parathyroid Hormone 164.6 pg/mL (15-65)
[2020-11-11] VITALS: BP 136/79; PULSE 85; RESP 18; TEMP 36.9; O2SAT 94
[2020-11-11 00:04] LABS: 25 Hydroxy Vitamin D 27 ng/mL (30-100); Alanine Aminotransferase 26 U/L (0-41); Albumin Level 3.8 g/dL (3.5-5.2); Alkaline Phosphatase 67 IU/L (40-130); Aspartate Amino Transferase 41 U/L (0-40); Globulin 2.7 g/dL (1.3-4.6); Thyroid Stimulating Hormone 1.64 uIU/mL (0.27-4.20); Total Bilirubin 0.2 mg/dL (0.15-1.2); Total Protein 6.5 g/dL (6.6-8.7)
[2020-11-11 01:04] LABS: Calcium Urine Random 1.2 mg/dL
[2020-11-11 04:28] VITALS: BP 125/79; PULSE 82; RESP 18; TEMP 36.6; O2SAT 93
[2020-11-11 06:00] VITALS: PULSE 79
[2020-11-11 06:24] LABS: Ionized Calcium 0.8 mmol/L (1.1-1.4)
[2020-11-11] MEDS: multivitamin therapeutic Tablet 1 TAB PO (06:33)
[2020-11-11] MEDS: tamsulosin 0.4 mg Capsule PO (06:34)
[2020-11-11] MEDS: amlodipine 10 mg Tablet PO (06:34)
[2020-11-11] MEDS: losartan 50 mg Tablet 100 MG PO (06:34)
[2020-11-11] MEDS: venlafaxine ER (24HR) 37.5 mg Capsule PO (06:34)
[2020-11-11 06:56] LABS: Alanine Aminotransferase 25 U/L (0-41); Albumin Level 3.6 g/dL (3.5-5.2); Alkaline Phosphatase 63 IU/L (40-130); Anion Gap 12.1 (5-19); Aspartate Amino Transferase 38 U/L (0-40); Blood Urea Nitrogen 13 mg/dL (8-23); Calcium 6.7 mg/dL (8.5-10.5); Carbon Dioxide 28 mmol/L (22-29); Chloride 103 mmol/L (98-107); Globulin 2.9 g/dL (1.3-4.6); Glomerular Filtration Rate 67.8 mL/min (90-130); Glucose 86 mg/dL (65-115); Magnesium 2.3 mg/dL (1.7-2.3); Osmolality Calculated 287 mOsm/kg (285-295); Potassium 4.1 mmol/L (3.5-5.1); Sodium 139 mmol/L (136-145); Total Bilirubin 0.3 mg/dL (0.15-1.2); Total Protein 6.5 g/dL (6.6-8.7)
[2020-11-11] MEDS: acetaminophen 325 mg Tablet 650 MG PO ×2 (08:32→21:11)
[2020-11-11] MEDS: magnesium oxide 400 mg tablet PO ×2 (08:32→18:32)
[2020-11-11] MEDS: famotidine 20 mg Tablet PO ×2 (08:32→18:32)
[2020-11-11] MEDS: cholecalciferol (vitamin D3) 5,000 unit Tablet 5000 UNIT PO (09:32)
--- NOTE | 2020-11-11 10:52 | PC.CHAP ---
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 [] Patient/Family/Request visit [] Outpatient visit [] Follow-up visit [] Physician referral [] Code/Alert [x] Routine visit [] Staff referral [] Actively dying [] Patient sleeping [] Family support [] [] Out of room [] Palliative care [] [] Receiving care in room [] Pre-surgical visit [] Trauma [] Long length of stay [] ICU visit [] Other: Relational/Emotional Strength [x] Patient feels connected with others/family/visitors/staff [] Distress [] Loneliness/isolation [] Abandonment Spirituality of Patient [x] Person of Radha [x] Attends Hinduism of their Radha [x] Believes in Prayer [] Reads Bible or Latter-Day materials [] There are Spiritual issues to be addressed Timber Management Specialist Interventions [x] Prayer [x] Active listening x[] Non-anxious presence [] Spiritual/emotional support [] Crisis/trauma care [x] Spiritual counseling [] Bereavement support [] Provided bereavement packet [] Provided Bible/devotional materials [] Provided toy/stuffed animal, coloring book to patient or family member [] Provided Communion [] Anointing/Alexis [] Salvation x] Completed spiritual assessment [] Other: Impact on Illness or Injury [] Angry [] Fearful [] Anxious [] Often cries [] Exhaustion [] Unable to work [] Unable to attend church [] Unable to walk/stand [] Unable to read [] Unable to drive [] Unable to eat/drink [] Unable to sleep [] Unable to be with family [] Patient intubated [] Other: Summary Time spent with patient 15 min
--- NOTE | 2020-11-11 12:32 | CT_ITS ---
WS: [id number] CT CHEST TECHNIQUE: Noncontrast CT of the chest with coronal and sagittal reformatted images. CLINICAL INFORMATION: possible infiltrate COMPARISON: None. DLP: 935.[address] scans at [facility] use at least one of these dose optimization techniques: automat ed exposure control; mA and/or kV adjustment per patient size (includes targeted exams where dose is matched to clinical indication); or iterative reconstruction. FINDINGS: Both lungs are well aerated. No acute pulmonary infiltrates. No focal pneumonia or pleural fluid. Sli ght subsegmental atelectasis in the lingula and left lower lobe.. Normal caliber thoracic aorta. No m ediastinal or hilar lymphadenopathy. Normal GE junction. Adrenal glands are normal. No axillary lymph adenopathy. Hypertrophic changes mid thoracic spine. CT/CT chest wo con [id number] IMPRESSION: 1. Both lungs are well aerated. No acute pulmonary infiltrates. 2. Slight subsegmental atelectasis in the lingula and left lower lobe. 3. No other significant findings.
[2020-11-11 12:35] VITALS: BP 123/75; BP 132/78; BP 134/66; PULSE 75; PULSE 76; PULSE 78
--- NOTE | 2020-11-11 16:21 | PM.PN ---
Subjective Subjective: Interval history: states 95% better with muscle cramps Medications: Reviewed: Yes Vitals/I&O/Wt Last Vital Signs Temp 97.8 F 11/11/20 04:28 Pulse 78 11/11/20 12:35 Resp 18 11/11/20 04:28 BP 123/75 11/11/20 12:35 Pulse Ox 93 11/11/20 04:28 11/11/20 11/11/20 11/11/20 06:59 14:59 22:59 Intake Total 100 / 670 790 / 790 Output Total 400 / 400 300 / 300 Balance -300 / 270 490 / 490 Weight last 48 hrs Weight 105.233 kg Physical Exam Narrative: EXAM NARRATIVE: In general and appears his stated age of [age] no acute distress Heart: Regular normal S1-S2 without murmurs clicks gallops or rubs Lungs: Clear today I do not auscultate the wheezes and minimal rhonchi heard on the left yesterday Abdomen: obese soft nontender nondistended positive bowel sounds no hepatosplenomegaly appreciated Extremities: No clubbing cyanosis or edema I do not see any twitching or muscle spasms today Data : 11/10/20 16:32 11/11/20 06:16 A&P Assessment and plan (1) Wheezing on auscultation: No wheezing heard today. However chest x-ray was reviewed and radiologist suspected a retrocardiac possible infiltrate. I was unable to view this lateral film. Will order CT chest to investigate. Status: Acute (2) Hypomagnesemia with secondary hypocalcemia: Patient was given a total of 6 g magnesium yesterday. His magnesium is 2.3 today will recheck tomorrow Calcium is improved. Corrected calcium with albumin of 3.6 is 6.9. Gave an additional gram of calcium gluconate. His PTH was elevated showing a normal response to hypocalcemia Status: Acute (3) Muscle spasm: Mostly resolved with the correction of calcium and magnesium Status: Acute (4) Anxiety: Patient time takes hydroxy zine 50 mg 3 times daily as needed if this is not ordered I will gladly order. Status: Acute (5) Crohn's disease: Patient relates that he is on his sixth medication for Crohn's disease without good results. He states that his physician in [place] has discussed surgery, patient has been resistant. I reiterated that his condition appears fulminant and resistant to medications and unfortunately he may necessitate resection in order to avoid further electrolyte abnormalities. 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
[2020-11-11 21:01] VITALS: BP 142/83; PULSE 103; RESP 18; TEMP 37.1; O2SAT 95
[2020-11-11] MEDS: enoxaparin 40 mg/0.4 mL Syringe SUBCUT (21:11)
[2020-11-11] MEDS: diazePAM 5 mg Tablet 10 MG PO (21:11)
[2020-11-11 22:00] VITALS: PULSE 101
[2020-11-12] VITALS (7 sets, daily range): BP systolic 120–141; BP diastolic 71–94; PULSE 80–110; RESP 14–18; TEMP 36.3–37; O2SAT 93–98
[2020-11-12] MEDS: losartan 50 mg Tablet 100 MG PO (06:14)
[2020-11-12] MEDS: venlafaxine ER (24HR) 37.5 mg Capsule PO (06:14)
[2020-11-12] MEDS: multivitamin therapeutic Tablet 1 TAB PO (06:15)
[2020-11-12] MEDS: amlodipine 10 mg Tablet PO (06:15)
[2020-11-12] MEDS: tamsulosin 0.4 mg Capsule PO (06:15)
[2020-11-12 06:28] LABS: Albumin Level 3.6 g/dL (3.5-5.2); Anion Gap 12.3 (5-19); Blood Urea Nitrogen 12 mg/dL (8-23); Calcium 7.2 mg/dL (8.5-10.5); Carbon Dioxide 25 mmol/L (22-29); Chloride 104 mmol/L (98-107); Glomerular Filtration Rate 61.3 mL/min (90-130); Glucose 93 mg/dL (65-115); NT Pro B Type Natriuretic Pept 65 pg/mL (0-125); Phosphorus 2.8 mg/dL (2.5-4.5); Potassium 4.3 mmol/L (3.5-5.1); Sodium 137 mmol/L (136-145)
[2020-11-12] MEDS: cholecalciferol (vitamin D3) 5,000 unit Tablet 5000 UNIT PO (10:30)
[2020-11-12] MEDS: famotidine 20 mg Tablet PO (10:30)
--- NOTE | 2020-11-12 10:41 | PM.DCS ---
Discharge Providers Date of Admission: 11/10/20 19:55 Date of Discharge: November 12, 2020 Attending Provider at Admission: Keshawn Herron DO Attending Provider at Discharge: Keshawn Herron DO Primary Care Provider: Kaylee Lopez MD Diagnoses at Discharge Discharge Diagnosis (1) Wheezing on auscultation: Status: Acute (2) Hypomagnesemia with secondary hypocalcemia: Status: Acute (3) Muscle spasm: Status: Acute (4) Anxiety: Status: Acute (5) Crohn's disease: Status: Acute (6) HTN (hypertension): Status: Acute Permanent problem details: Patient has a history of essential benign hypertension. (7) Cardiomyopathy: Status: Acute Permanent problem details: Elevation fraction about 35 to 40% by echocardiogram. Based on the left ventricular angiogram, seems to be around 45 to 50% at this time-03/17/2020 Qualifiers: Cardiomyopathy type: other Qualified Code(s): I42.8 - Other cardiomyopathies Reason for Visit Reason for Visit: DR SENT TO ER STATING MAGNESIUM IS LOW Hospital Course Hospital Course Patient was admitted to the hospital for abnormal labs. Patient was complaining of severe muscle cramps and saw his primary care provider. Laboratories studies were obtained and it showed severe hypocalcemia and severe hypomagnesemia. Patient has a 6-year history of Crohn's disease. He has at minimum 4-5 watery stools a day. He is on his sixth treatment option. He is on Skyrizi received only 1 dose thus far. He has had no change in bowel movements. He was admitted for IV supplementation of magnesium and calcium. Of note his potassium was normal. He does ingest significant amounts of bananas. Work-up was obtained to find other etiology besides significant diarrhea as the cause. PTH being elevated supports a normal response to hypercalcemia. CT of chest was done because of abnormal chest x-ray. CT chest was negative for mass or other abnormality. While his vitamin D was somewhat low at 27 this does not explain the severe hypocalcemia. Thus I believe his electrolyte abnormality is most likely due to severe diarrhea from Crohn's disease. Patient will be seeing his specialist in [place] regarding his Crohn's in early November. I asked the patient to discuss this with his doctor. This is his second admission in about a year for severe electrolyte abnormalities. I am concerned that he will not be able to absorb the supplementation we are prescribing at discharge. Please note the patient will be on high-dose supplementation including calcium 2 g a day. Magnesium 400 mg 3 times daily. Vitamin D 5000 international units daily. Need a follow-up vitamin D level in approximately 3 months. And frequent lab draws to determine stability of electrolytes. At this time I would recommend weekly renal panel with magnesium level. Physical Exam Narrative: EXAM NARRATIVE: In general and appears his stated age of [age] no acute distress Heart: Regular normal S1-S2 without murmurs clicks gallops or rubs Lungs: Clear again today- I do not auscultate the wheezes or rhonchi Abdomen: obese soft nontender nondistended positive bowel sounds no hepatosplenomegaly appreciated Extremities: No clubbing cyanosis or edema I do not see any twitching or muscle spasms today Discharge Data Data Completed and Pending: Completed Studies During Hospitalization Category Date Time Status CT chest wo con 7 1250 Routine Cat Scan 11/11/20 12:32 Completed XR chest 2V* 7104 6 Routine Exams 11/10/20 18:47 Completed Pending at discharge Category Date Time Status PTH Related Pepti de (Protein) Stat Lab 11/10/20 20:04 Received Labs from last 24 hours 11/12/20 05:46 Sodium 137 Potassium 4.3 Chloride 104 Carbon Dioxide 25 Anion Gap 12.3 BUN 12 Creatinine 1.2 GFR Calculation 61.3 L Glucose 93 Calcium 7.2 L Phosphorus 2.8 Magnesium 2.0 NT-Pro-B Natriuret Pep 65 Albumin 3.6 Vitals: Last Vital Signs Temp 97.4 F L 11/12/20 07:39 Pulse 86 11/12/20 07:39 Resp 14 11/12/20 07:39 BP 141/94 11/12/20 07:39 Pulse Ox 96 11/12/20 07:39 Discharge Plan Discharge Patient Disposition: Home Condition: Stable Prescriptions: New cholecalciferol (vitamin D3) 125 mcg (5,000 unit) Tablet 5,000 unit PO DAILY Qty: 30 RF: 0 famotidine 20 mg Tablet See Rx Instructions .ROUTE .COMPLEX PRN (Reason: Acid Reflux) Qty: 60 RF: 0 Magnesium Oxide [Magox] 400 mg PO TID 30 Days Qty: 90 RF: 0 Continued venlafaxine 37.5 mg Capsule,Extended Release 24hr 37.5 mg PO DAILY@0700 RF: 0 alprazolam 0.5 mg tablet 0.5 mg PO Q4H PRN (Reason: Anxiety) RF: 0 hydroxyzine HCl 50 mg Tablet 50 mg PO TID PRN (Reason: Itching) RF: 0 Skyrizi See Rx Instructions .ROUTE .COMPLEX RF: 0 amlodipine 10 mg tablet 10 mg PO DAILY@0700 RF: 0 losartan 100 mg tablet 100 mg PO DAILY@0700 RF: 0 multivitamin [Multiple Vitamins] Tablet 1 tab PO DAILY@0700 RF: 0 tamsulosin 0.4 mg capsule 0.4 mg PO DAILY@0700 RF: 0 Discontinued omeprazole 40 mg Capsule,Delayed Release(Dr/Ec) 40 mg PO DAILY PRN (Reason: Acid Reflux) RF: 0 Discharge Orders: Discharge Order (Routine); Ordered 11/12/20 Ordered By: Keshawn Herron Referrals: Kaylee Aargon DO [Physician] - 11/26/20 8:00 am (PLEASE CALL WHEN DISCHARGED FROM HOSPITAL [phone]) Discharge Diet: As Directed Discharge Activity: Limit activity as instructed Patient Instructions: Opioid Safety Activity Restrictions/Additional Instructions: Pepcid 20 mg orally one to 2 times a day. Initially take upon waking. Wait 1 hour before eating. Do NOT take vit d, Calcium or Magnesium within 2 hours of taking pepcid. Recommend alkaline diet and alkaline water to aid with indigestion. Add Calcium 2 grams a day. should be able to find a 500 mg supplement or even 1 g supplement. Discharge Attestations Time Spent in Discharge Care*: greater than 30 min Quality Metrics Clinical Quality Measures During this hospital stay, did patient experience: None Coding Level of Care Code Acute Chg [facility] note Diagnoses Wheezing on auscultation R06.2 Hypomagnesemia with secondary hypocalcemia E83.42; E83.51 Muscle spasm M62.838 Anxiety F41.9 Crohn's disease K50.90 HTN (hypertension) I10 Cardiomyopathy I42.8 Cardiomyopathy type: other
--- NOTE | 2020-11-12 13:33 | PC.NURSE ---
PT HAS DONE WELL FOR ME TODAY. PT HAS NOT HAD ANY COMPLAINTS OF PAIN. PT HAS BEEN UP AN AMBULATING. PT WANTS TO DISCHARGE TODAY. PLANS OF THAT ARE IN PLACE. PT IS DOING WELL. DISCHARGE PAPERWORK WAS GONE OVER WITH PT. ALL QUESTIONS ANSWERED. MEDICATIONS WERE SENT TO PHARMACY OF PTS CHOICE. IV WAS REMOVED BY THIS NURSE. PT TOLERATED WELL. CATHETER TIP INTACT. PT REQUESTED TO WALK OUT OF THE HOSPITAL. THIS NURSE AMBULATED PT OUT OF THE HOSPITAL. PT SAFELY DISCHARGED.
[2020-11-17 20:12] LABS: PTH Related Peptide (Protein) 10 pg/mL (14-27)
== END 2020-11-12 13:42 | disposition home or self-care (01) ==
LOC: ER 15:25 → MEDSURG 19:39
PROVIDERS: Admitting Provider Internal Medicine; Emergency Provider Family Medicine; PCP Family Medicine; Visit Provider Internal Medicine
DX: E83.42 Hypomagnesemia (principal); E83.51 Hypocalcemia; R06.2 Wheezing; M62.838 Other muscle spasm; F41.9 Anxiety disorder, unspecified; K50.90 Crohn's disease, unspecified, without complications; I10 Essential (primary) hypertension; I42.8 Other cardiomyopathies
CPT/HCPCS: 36415; 71046; 71250; 80048; 80053; 80069; 80076; 81003; 82306; 82310; 82330; 82340; 82542; 83735; 83880; 83970; 84443; 85025; 93005; 96365; 96366; 96367; 96372; 99285; G0378; J0610; J1650; J3475

== ENCOUNTER → 2020-11-17 16:16 | Outpatient (BNVA) | payer BC, SELFPAY | PROVIDERS: PCP Family Medicine; Visit Provider Nurse Practitioner Family | DX: E83.42 Hypomagnesemia (principal); E83.51 Hypocalcemia | CPT/HCPCS: 80048; 83735 ==

== ENCOUNTER → 2020-11-25 08:32 | Outpatient (BNVA) | payer BC, SELFPAY | PROVIDERS: PCP Family Medicine; Visit Provider Nurse Practitioner Family | DX: E83.42 Hypomagnesemia (principal); E83.51 Hypocalcemia | CPT/HCPCS: 80048; 83735 ==

== ENCOUNTER → 2021-03-22 09:52 | Outpatient (BNVA) | payer BC, SELFPAY | PROVIDERS: PCP Family Medicine; Visit Provider Specialist | DX: L29.8 Other pruritus (principal); Z87.891 Personal history of nicotine dependence | CPT/HCPCS: 99204 ==

== ENCOUNTER 2021-04-15 06:00 | Outpatient (RCR) | payer OTHER, SELFPAY | END 2021-04-27 23:59 | disposition home or self-care (01) | LOC: TPT 06:00 | PROVIDERS: PCP Family Medicine; Referring Provider Family Medicine; Visit Provider Family Medicine | DX: M25.512 Pain in left shoulder (principal) | CPT/HCPCS: 97110; 97140; 97162 ==

== ENCOUNTER 2021-04-28 06:00 | Outpatient (RCR) | payer OTHER, SELFPAY | END 2021-05-28 23:59 | disposition home or self-care (01) | LOC: TPT 06:00 | PROVIDERS: PCP Family Medicine; Referring Provider Family Medicine; Visit Provider Family Medicine | DX: M25.512 Pain in left shoulder (principal) | CPT/HCPCS: 97110; 97140 ==

== ENCOUNTER 2021-05-26 20:00 | Outpatient (CLI) | payer OTHER, SELFPAY | END 2021-05-26 20:01 | disposition home or self-care (01) | LOC: SLEEP 05-27 08:02 | PROVIDERS: PCP Family Medicine; Visit Provider Family Medicine | DX: G47.10 Hypersomnia, unspecified (principal); R06.83 Snoring; R53.83 Other fatigue; G47.33 Obstructive sleep apnea (adult) (pediatric) | CPT/HCPCS: 95810 ==

== ENCOUNTER → 2021-06-07 14:57 | Outpatient (BNVA) | payer OTHER, SELFPAY | PROVIDERS: PCP Family Medicine; Referring Provider Family Medicine; Visit Provider Specialist | DX: M25.512 Pain in left shoulder (principal) | CPT/HCPCS: 73030 ==

== ENCOUNTER 2021-06-08 06:00 | Outpatient (RCR) | payer OTHER, SELFPAY | END 2021-06-28 23:59 | disposition home or self-care (01) | LOC: TPT 06:00 | PROVIDERS: PCP Family Medicine; Referring Provider Family Medicine; Visit Provider Family Medicine | DX: M25.512 Pain in left shoulder (principal) | CPT/HCPCS: 97110; 97140; 97164 ==

== ENCOUNTER → 2021-06-28 11:42 | Outpatient (BNVA) | payer BC, SELFPAY | PROVIDERS: PCP Family Medicine; Visit Provider Surgery | DX: Z11.52 Encounter for screening for COVID-19 (principal) | CPT/HCPCS: 87635 ==

== ENCOUNTER 2021-06-29 06:00 | Outpatient (RCR) | payer OTHER, SELFPAY | END 2021-07-26 23:59 | disposition home or self-care (01) | LOC: TPT 06:00 | PROVIDERS: PCP Family Medicine; Referring Provider Family Medicine; Visit Provider Family Medicine | DX: M25.512 Pain in left shoulder (principal) | CPT/HCPCS: 97110; 97140; 97164 ==

== ENCOUNTER 2021-07-29 06:26 | Day surgery (SDC) | payer OTHER, SELFPAY ==
[2021-06-28 13:49] VITALS: BMI 32.3
--- NOTE | 2021-07-29 06:36 | ANES.PREANE2 ---
Pre-Anesthetic Assessment Height/Weight: Height 1.78 m Weight 115.666 kg Preop Diagnosis: History of hiatal hernia and acid reflux Operation Date: 07/01/21 16:45 Proposed Procedures p EGD 58974/ K21.9(Not Applicable) - Gus Senior MD Operation Date: 07/29/21 08:00 Proposed Procedures p EGD 63072/ K21.9(Not Applicable) - Gus Senior MD Familial anesthetic complications: None Was Beta Juan Carlos taken within 24 hours: N/A Was Clonidine taken within 24 hours: N/A Last intake: > 8 hrs Social Alcohol (occassional) and No tobacco Exam alert, oriented x 3, clear to auscultation bilaterally and regular rate & rhythm Airway Cervical ROM: within normal limits Mallampati: Class III Dentition: full CV/HEM Hypertension GI Gastroesophageal Reflux Disease and Hiatal Hernia Anesthetic Plan ASA status: 3 Anesthesia: MAC Risk of > 500 ml blood loss (7ml/kg in children): No Medications/Allergies Home Medications Medication Instructions Recorded Confirmed Last Taken Type multivitamin (Multiple Vitamins) 1 tab PO DAILY@0707/30/19 07/27/21 11/10/20 History alprazolam 0.5 mg tablet 0.5 mg PO Q4H PRN 01/10/20 07/27/21 01/10/20 History venlafaxine 37.5 mg 37.5 mg PO DAILY@69901/10/20 07/27/21 11/10/20 History capsule,extended release 24 hr amlodipine 10 mg tablet 10 mg PO DAILY@69911/10/20 07/27/21 11/10/20 History hydroxyzine HCl 50 mg tablet 50 mg PO TID PRN 11/10/20 07/27/21 Unknown History losartan 100 mg tablet 100 mg PO DAILY@69911/10/20 07/27/21 11/10/20 History tamsulosin 0.4 mg capsule 0.4 mg PO DAILY #90 cap 01/05/21 07/27/21 Unknown Rx atorvastatin 40 mg tablet 40 mg PO DAILY 03/22/21 07/27/21 Unknown History sildenafil 100 mg tablet 100 mg PO DAILY PRN 03/22/21 07/27/21 Unknown History omeprazole 40 mg capsule,delayed 40 mg PO DAILY 06/10/21 07/27/21 Unknown History release risankizumab-rzaa 150 mg/mL 150 mg SUBCUT DIRECTED 06/28/21 07/27/21 Unknown History subcutaneous syringe gabapentin 400 mg capsule 400 mg PO QID 07/27/21 07/27/21 Unknown History Allergies Allergy/AdvReac Type Severity Reaction Status Date / Time ketorolac [From Toradol] Allergy ALGBere-Swell Verified 06/28/21 13:56 Lip/Tongue/Throat [facility] Anesthesia Medical History Anxiety Atypical chest pain The chest pain is mostly resolved at this time. BPH loc w urin obs/LUTS Cardiomyopathy Elevation fraction about 35 to 40% by echocardiogram. Based on the left ventricular angiogram, seems to be around 45 to 50% at this time-03/17/2020 Crohn's disease Dyslipidemia (high LDL; low HDL) Elevated PSA Erectile dysfunction History of nonmelanoma skin cancer HTN (hypertension) Patient has a history of essential benign hypertension. Renal insufficiency This is chronic and seems to be stable at this time SOB (shortness of breath) Patient is mainly complaining of dyspnea on exertion. The symptoms are improving at this time. Surgical History Hx of detached retina repair BILATERAL Hx of hernia repair Family History Father , at age 81 Cancer Diabetes Clotting disorder Stroke Mother Cancer Denies family history of CAD (coronary artery disease) Dementia Chronic kidney disease (CKD) Suicide Anesthesia complication Bleeding disorder Lung disease Social History Quit status (tobacco): has quit using tobacco Former quit date comment: PPD x 30 yrs Second hand smoke exposure: No Alcohol intake: current Alcohol intake frequency: holidays/special occasions only Lives independently: No Household members: spouse Marital status: Current occupational status: disabled History of recent travel: No Current gender identity: Male Data Anesthesia Cardiac Studies: Echocardiogram Ultrasound 03/03/20 Sestamibi Stress Test (Cardiology) 12/23/19
[2021-07-29 06:57] VITALS: BP 130/87; PULSE 72; RESP 16; TEMP 36.4; O2SAT 98
[2021-07-29] MEDS: sodium chloride 0.9% 1,000 ML 30 ML IV (07:00)
--- NOTE | 2021-07-29 08:15 | W.PM.OPSFHP ---
Same Day Surgery H&P Indication for Procedure/HPI DATE OF PROCEDURE: July 29, 2021 CHIEF COMPLAINT/INDICATIONFOR SURGICAL PROCEDURE: Reflux is worse PREOP DIAGNOSIS: History of hiatal hernia and acid reflux PLANNED PROCEDURE: Operation Date: 07/01/21 16:45 Proposed Procedures p EGD 17098/ K21.9(Not Applicable) - Gus Senior MD Operation Date: 07/29/21 08:00 Proposed Procedures p EGD 69561/ K21.9(Not Applicable) - Gus Senior MD 06/10/2021 Is a pleasant 60 years old gentleman with history of acid reflux disease and has been on PPI therapy for more than 6 months.? Patient describes that he does have retrosternal dull discomfort that would wake him up from sleep in the middle of the night.? He only got a diagnostic EGD before 15 years and he was told that he had a hiatal hernia but afterward never had a repeat diagnostic EGD.? Patient currently is under trial therapy for Crohn's disease and he follows with GI center in the [facility] and he is updated on his colonoscopies. Patient is referred to me for further evaluation. Patient had recently a CT scan of the chest that showed 1.? Both lungs are well aerated. No acute pulmonary infiltrates. 2.? Slight subsegmental atelectasis in the lingula and left lower lobe. 3.? No other significant findings. 07/29/2021 Patient comes today for diagnostic EGD ROS All systems have been reviewed negative except as per the above or per problem list Medications/Allergies* Home Medications Medication Instructions Recorded Confirmed Type multivitamin (Multiple Vitamins) 1 tab PO DAILY@69907/30/19 07/27/21 History alprazolam 0.5 mg tablet 0.5 mg PO Q4H PRN 01/10/20 07/27/21 History venlafaxine 37.5 mg 37.5 mg PO DAILY@69901/10/20 07/27/21 History capsule,extended release 24 hr amlodipine 10 mg tablet 10 mg PO DAILY@69911/10/20 07/27/21 History hydroxyzine HCl 50 mg tablet 50 mg PO TID PRN 11/10/20 07/27/21 History losartan 100 mg tablet 100 mg PO DAILY@69911/10/20 07/27/21 History atorvastatin 40 mg tablet 40 mg PO DAILY 03/22/21 07/27/21 History sildenafil 100 mg tablet 100 mg PO DAILY PRN 03/22/21 07/27/21 History omeprazole 40 mg capsule,delayed 40 mg PO DAILY 06/10/21 07/27/21 History release risankizumab-rzaa 150 mg/mL 150 mg SUBCUT DIRECTED 06/28/21 07/27/21 History subcutaneous syringe gabapentin 400 mg capsule 400 mg PO QID 07/27/21 07/27/21 History Allergies/Adverse Reactions Allergy/AdvReac Type Severity Reaction Status Date / Time ketorolac [From Toradol] Allergy ALGY-Swell Verified 07/29/21 08:18 Lip/Tongue/Throat Current Medications: Generic Name Dose Route Start Last Admin Trade Name Freq PRN Reason Stop Dose Admin Sodium Chloride 1,000 mls @ 30 mls/hr 07/29/21 06:45 07/29/21 07:00 Sodium Chloride 0.9% IV 30 mls/hr .Q24H AKIN Administration Pertinent History/Comorbid Conditions* Medical History (Updated 06/11/21 @ 09:49 by Gus Senior MD) Anxiety Atypical chest pain The chest pain is mostly resolved at this time. BPH loc w urin obs/LUTS Cardiomyopathy Elevation fraction about 35 to 40% by echocardiogram. Based on the left ventricular angiogram, seems to be around 45 to 50% at this time-03/17/2020 Crohn's disease Dyslipidemia (high LDL; low HDL) Elevated PSA Erectile dysfunction History of nonmelanoma skin cancer HTN (hypertension) Patient has a history of essential benign hypertension. Renal insufficiency This is chronic and seems to be stable at this time SOB (shortness of breath) Patient is mainly complaining of dyspnea on exertion. The symptoms are improving at this time. Surgical History (Updated 02/05/20 @ 10:51 by Belkis Christianson APRN) Hx of detached retina repair BILATERAL Hx of hernia repair Family History (Updated 07/07/20 @ 13:56 by Betzy Thomas RN) Father, at age 81 Diabetes Father Clotting disorder Father Cancer Father Mother Stroke Father Denies family history of CAD (coronary artery disease) Dementia Chronic kidney disease (CKD) Suicide Anesthesia complication Bleeding disorder Lung disease Social History Quit status (tobacco): has quit using tobacco Former quit date comment: PPD x 30 yrs Second hand smoke exposure: No Alcohol intake: current Alcohol intake frequency: holidays/special occasions only Lives independently: No Household members: spouse Marital status: Current occupational status: disabled History of recent travel: No Current gender identity: Male Pertinent Exam Findings alert, oriented x 3, regular rate & rhythm and procedure specific exam findings (Abdominal examination nontender nondistended soft) Recommendations Surgery/Procedure today (EGD with possible biopsy) Coding Level of Care Code 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
[2021-07-29 08:42] VITALS: BP 117/68; PULSE 104; RESP 16; TEMP 36.2; O2SAT 95
[2021-07-29 08:51] VITALS: BP 110/77; PULSE 88; RESP 17; O2SAT 95
--- NOTE | 2021-07-29 19:13 | ANE.PACU2 ---
Inpatient post-anesthesia follow up: Airway intact: Yes Vital signs: Temperature 97.1 F Pulse Rate 88 Respiratory Rate 17 Blood Pressure 110/77 Pulse Oximetry 95 Oxygen Delivery Me thod Room Air Oxygen Flow Rate Fraction of Inspir ed Oxygen Hydration adequate: Yes Nausea and vomiting: No Pain level: 1 Mental status: Baseline
== END 2021-07-29 09:02 | disposition home or self-care (01) ==
PROVIDERS: PCP Family Medicine; Visit Provider Surgery
PROC: 0DJ08ZZ Inspection of Upper Intestinal Tract, Via Natural or Artificial Opening Endoscopic (ICD-10-PCS; CPT 43235; principal; 2021-07-29 08:00)
DX: K21.00 Gastro-esophageal reflux disease with esophagitis, without bleeding (principal); K29.70 Gastritis, unspecified, without bleeding; K29.80 Duodenitis without bleeding; K50.90 Crohn's disease, unspecified, without complications; I10 Essential (primary) hypertension; F41.9 Anxiety disorder, unspecified; N40.1 Benign prostatic hyperplasia with lower urinary tract symptoms; Z87.891 Personal history of nicotine dependence
CPT/HCPCS: 43239; 88305; 88342; J2704; J7030

== ENCOUNTER 2021-08-02 09:33 | Outpatient (CLI) | payer OTHER, SELFPAY ==
--- NOTE | 2021-08-02 09:41 | FL_ITS ---
WS: [id number] DOUBLE CONTRAST UPPER GI EXAMINATION HISTORY: K21.9 - Gastro-esophageal reflux disease without esophagitis COMPARISON: None available. FLUOROSCOPY TIME: 2.4 minutes. Barium mixture traversed normally throughout the esophagus. No filling defects within the stomach. Du odenal bulb was normally distensible and pliable. There was poor emptying of esophagus with the patient in supine position. Barium was noted to flow fo rward and retrograde within the esophagus prior to emptying. Only a small amount of reflux noted in t he distal esophagus. No hiatal hernia was demonstrated on this exam. FL/FL upper GI w air* [id number] IMPRESSION: 1. Delayed emptying of the esophagus with patient supine with to and fro motio n of the barium. Mild esophageal dysmotility. 2. No hiatal hernia.
== END 2021-08-02 09:34 | disposition home or self-care (01) ==
LOC: RAD 09:34
PROVIDERS: PCP Family Medicine; Visit Provider Surgery
DX: K21.9 Gastro-esophageal reflux disease without esophagitis (principal); K30 Functional dyspepsia; Z87.19 Personal history of other diseases of the digestive system
CPT/HCPCS: 74246

== ENCOUNTER 2021-08-02 20:00 | Outpatient (CLI) | payer OTHER, SELFPAY | END 2021-08-02 20:01 | disposition home or self-care (01) | LOC: SLEEP 08-03 06:37 | PROVIDERS: PCP Family Medicine; Visit Provider Family Medicine | DX: G47.33 Obstructive sleep apnea (adult) (pediatric) (principal) | CPT/HCPCS: 95811 ==

== ENCOUNTER 2021-08-05 11:42 | Outpatient (CLI) | payer OTHER, SELFPAY ==
--- NOTE | 2021-08-05 12:05 | MR_ITS ---
WS: [id number] MRI LEFT SHOULDER NONCONTRAST TECHNIQUE: Sagittal T2, coronal T1, T2 and proton density imaging. Axial gradient PDE imaging. CLINICAL INFORMATION: PAIN IN JOINT,SHOULDER REGION COMPARISON: None. FINDINGS: Moderate degenerative arthritis AC joint with hypertrophic spurring. Mild downsloping of the acromion . Mild edema at the AC joint with synovial thickening. Slight impingement on the distal supraspinatus . Small amount of subacromial/subdeltoid fluid. Partial-thickness intrasubstance tear involving the d istal supraspinatus extending to the insertion. Chronic thinning of the distal supraspinatus. Infrasp inatus is intact. Normal teres minor. Normal subscapularis. Normal biceps tendon in the bicipital radha ove. Tendinopathy intra-articular biceps tendon. Biceps labral anchor appears intact. Degenerative fraying of the glenoid labrum. MR/MR shoulder LT wo con* [id number] IMPRESSION: 1. Moderate degenerative arthritis AC joint with hypertrophic spurring and adilson ma. Small amount of subacromial/subdeltoid fluid. 2. Mild downsloping acromion with impingement on the distal supraspinatus. Int rasubstance partial-thickness tear involving the distal supraspinatus. No tendo n retraction. 3. Rotator cuff is otherwise intact. 4. Normal biceps tendon in the bicipital groove. 5. Tendinopathy intra-articular biceps tendon which appears intact.
== END 2021-08-05 11:43 | disposition home or self-care (01) ==
PROVIDERS: PCP Family Medicine; Visit Provider Specialist
DX: M19.012 Primary osteoarthritis, left shoulder (principal); R60.0 Localized edema
CPT/HCPCS: 73221; 87635

== ENCOUNTER → 2021-11-18 08:24 | Outpatient (BNVA) | payer OTHER, SELFPAY | PROVIDERS: PCP Family Medicine; Visit Provider Specialist | DX: M25.512 Pain in left shoulder (principal); M75.02 Adhesive capsulitis of left shoulder; Z71.89 Other specified counseling | CPT/HCPCS: 20610; J1100; J2795; J3301 ==

== ENCOUNTER → 2022-01-05 08:05 | Outpatient (BNVA) | payer OTHER, SELFPAY | PROVIDERS: PCP Family Medicine; Visit Provider Specialist | DX: M75.102 Unspecified rotator cuff tear or rupture of left shoulder, not specified as traumatic (principal); M75.02 Adhesive capsulitis of left shoulder; M19.012 Primary osteoarthritis, left shoulder | CPT/HCPCS: 73030; 99214 ==

== ENCOUNTER → 2022-02-21 09:27 | Outpatient (BNVA) | payer OTHER, SELFPAY | PROVIDERS: PCP Family Medicine; Visit Provider Specialist | DX: M75.42 Impingement syndrome of left shoulder (principal); M19.012 Primary osteoarthritis, left shoulder | CPT/HCPCS: 99214 ==

== ENCOUNTER 2022-02-22 07:40 | Day surgery (SDC) | payer OTHER, SELFPAY ==
[2022-02-21 11:37] VITALS: BMI 32.3
[2022-02-22] VITALS (8 sets, daily range): BP systolic 120–139; BP diastolic 70–90; PULSE 86–108; RESP 18–20; TEMP 36.1–36.7; O2SAT 93–96
[2022-02-22] MEDS: sodium chloride 0.9% 1,000 ML 30 ML IV (08:03)
[2022-02-22] MEDS: acetaminophen 1,000 MG/100 ML PIGGYBACK 400 MG IV (08:04)
--- NOTE | 2022-02-22 08:10 | P.HPUD_ITS ---
Surgery/Procedure H&P Update DATE OF PROCEDURE: February 22, 2022 DATE H&P PERFORMED: 02/21/22 H&P UPDATE INFORMATION: I have reviewed H&P completed within last 30 days, I have examined patient prior to procedure, No changes to prior documentation and H&P is in [facility] EMR on date indicated PREOP DIAGNOSIS: Possible rotator cuff tear, impingement, AC joint DJD PLANNED PROCEDURE: Operation Date: 02/22/22 09:30 Proposed Procedures p LEFT ACROMPIOPLASTY, DISTAL CLAVICLE RESETION AND POSSIBLE ROTATOR CUFF REPAIR [id number]? [id number]? [id number],M75.102,M12.812,M75.02,M19.012(Not Applicable) - Marissa Solo MD s Acromioplasty(Left) - Marissa Solo MD Related Problem List Diagnoses (1) Left rotator cuff tear: (2) Arthritis of left acromioclavicular joint: (3) Impingement syndrome, shoulder, left:
[2022-02-22] MEDS: midazolam 1 mg/mL INJ 2 mL 2 MG IVP (08:17)
--- NOTE | 2022-02-22 08:23 | ANES.PREANE2 ---
Pre-Anesthetic Assessment Height/Weight: Height 1.78 m Weight 102.058 kg Temp Pulse Resp BP Pulse Ox O2 Del Method 97.6 F 86 18 136/70 96 02/22/22 07:53 02/22/22 07:53 02/22/22 07:53 02/22/22 07:53 02/22/22 07:53 02/22/22 07:53 Preop Diagnosis: Impingement left shoulder Operation Date: 02/22/22 09:30 Proposed Procedures p LEFT ACROMPIOPLASTY, DISTAL CLAVICLE RESETION AND POSSIBLE ROTATOR CUFF REPAIR [id number]? [id number]? [id number],M75.102,M12.812,M75.02,M19.012(Not Applicable) - Marissa Solo MD s Acromioplasty(Left) - Marissa Solo MD Familial anesthetic complications: None Was Beta Juan Carlos taken within 24 hours: N/A Was Clonidine taken within 24 hours: N/A Last intake: Intake Last Liquid Date 02/21/22 Last Liquid Time 22:00 Last Solid Date 02/21/22 Last Solid Time 18:00 Social No alcohol and No tobacco Exam alert, oriented x 3, clear to auscultation bilaterally and regular rate & rhythm Airway Mallampati: Class III Dentition: other (missing teeth) CV/HEM Hypertension GI crohn's disease - not on steroids Metabolic Hyperlipidemia Anesthetic Plan ASA status: 3 Anesthesia: General and Regional (specify below) Risk of > 500 ml blood loss (7ml/kg in children): No Medications/Allergies Home Medications Medication Instructions Recorded Confirmed Last Taken Type multivitamin (Multiple Vitamins 1 tab PO DAILY@0700 07/30/19 02/22/22 02/21/22 History tablet) alprazolam 0.5 mg tablet 0.5 mg PO Q4H PRN Anxiety 01/10/20 02/22/22 02/21/22 History venlafaxine 37.5 mg 37.5 mg PO DAILY@0700 01/10/20 02/22/22 02/21/22 History capsule,extended release 24 hr amlodipine 10 mg tablet 10 mg PO DAILY@0711/10/20 02/22/22 02/21/22 History losartan 100 mg tablet 100 mg PO DAILY@69911/10/20 02/22/22 02/21/22 History tamsulosin 0.4 mg capsule 0.4 mg PO DAILY #90 caps 01/05/21 02/22/22 02/21/22 Rx atorvastatin 40 mg tablet 40 mg PO DAILY 03/22/21 02/22/22 02/21/22 History sildenafil 100 mg tablet 100 mg PO DAILY PRN Sexual Activity 03/22/21 02/22/22 07/28/21 History omeprazole 40 mg capsule,delayed 40 mg PO DAILY 06/10/21 02/22/22 02/21/22 History release risankizumab-rzaa 150 mg/mL 150 mg SUBCUT DIRECTED 06/28/21 02/22/22 01/12/22 History subcutaneous syringe Allergies Allergy/AdvReac Type Severity Reaction Status Date / Time ketorolac [From Toradol] Allergy ALGY-Swell Verified 02/22/22 07:46 Lip/Tongue/Throat Current Medications Generic Name Dose Route Start Last Admin Trade Name Freq PRN Reason Stop Dose Admin Sodium Chloride 1,000 mls @ 30 mls/hr 02/22/22 07:45 02/22/22 08:03 Sodium Chloride 0.9% IV 02/23/22 07:44 30 mls/hr .Q24H AKIN Administration PFSH Anesthesia Medical History Anxiety Atypical chest pain The chest pain is mostly resolved at this time. BPH loc w urin obs/LUTS Cardiomyopathy Elevation fraction about 35 to 40% by echocardiogram. Based on the left ventricular angiogram, seems to be around 45 to 50% at this time-03/17/2020 Crohn's disease Dyslipidemia (high LDL; low HDL) Elevated PSA Erectile dysfunction History of nonmelanoma skin cancer HTN (hypertension) Patient has a history of essential benign hypertension. Hx of hiatal hernia Renal insufficiency This is chronic and seems to be stable at this time SOB (shortness of breath) Patient is mainly complaining of dyspnea on exertion. The symptoms are improving at this time. Surgical History Hx of detached retina repair BILATERAL Hx of hernia repair Family History Father , at age 81 Cancer Diabetes Clotting disorder Stroke Mother Cancer Denies family history of CAD (coronary artery disease) Dementia Chronic kidney disease (CKD) Suicide Anesthesia complication Bleeding disorder Lung disease Social History Smoking and tobacco status: never smoked Quit status (tobacco): has quit using tobacco Former quit date comment: PPD x 30 yrs Second hand smoke exposure: No Alcohol intake: current Alcohol intake frequency: holidays/special occasions only Lives independently: No Household members: spouse Marital status: Current occupational status: disabled History of recent travel: No Current gender identity: Male Data Anesthesia Cardiac Studies: Echocardiogram Ultrasound 03/03/20 Sestamibi Stress Test (Cardiology) 12/23/19
--- NOTE | 2022-02-22 08:25 | ANES.PROC ---
Anesthesia Procedures Procedure/Date: 02/22/22 Nerve Block ^: Nerve Block 1: Main Anesthesia: general anesthesia Time Out Performed: Yes Consent: requested by attending/covering physician, from patient, risks and benefits reviewed and patient agrees to proceed Anesthesia monitors applied: pulse oximetry, EKG, BP cuff and oxygen Nerve block position: semi sitting Anesthetic Used: ropivicaine 0.5% (20 ml) and with decadron (4 mg) Ultrasound used to: visualize and ID brachial plexus and visualize and ID interscalene groove Nerve Stimulator Used?: No Interscalene/Femoral BLK: 2 stimuplex 22 g needle used for position and inplane approach, visualize local anesthetic spread and no vascular puncture identified Injection: neg aspiration of heme Patient Tolerated Procedure: well and no complications Complications: none
--- NOTE | 2022-02-22 10:27 | SUR.PHASEI ---
1019 PT TO PACU 5 PT AWAKE ALERT HOB AT 40 DEGREES PT ON RA VSS, IV TO RT WRIST NS 100ML UP AT KVO RATE PER GRAVITY., ID BRACELET TO RT WRIST , PT ID'D WITH 2 IDENTIFIERS, LT SHOULDER DRESSING D/I AN PT WITH SHOULDER IMMOBILIZER IN PLACE AND FIRST ICE TO LT SHOULDER.PT MOVES LT FINGERS TO COMMAND PT STATES ( IT FEELS NUMB) PT HAD INTERSCALENE BLOCK PRIOR TO SURGERY, DISTAL FINGERS PINK WARM WITH CAP REFILL LESS THAN [address] MONITOR SR TO ST WITH NO ECTOPY NOTED.
--- NOTE | 2022-02-22 10:35 | PM.OP ---
Operative Report Date of procedure: February 22, 2022 Pre-op diagnosis: Left partial rotator cuff tear, acromioclavicular degenerative osteoarthritis, and impingement Post-op diagnosis: Complete left rotator cuff tear of the supraspinatus with acromioclavicular degenerative osteoarthritis and impingement Post-op findings: Complete tear of the left supraspinatus proximal to the insertion, horizontal orientation Procedure done: Left primary rotator cuff repair, acromioplasty, and distal clavicle resection Specimens removed/disposition: Distal clavicle and acromion resection, disposed of Pathology: none sent Surgeon: Marissa Solo Civil Process Server: [facility] operating room technicians Anesthesia: General (Intubated, ASA 2 with supplemental interscalene block) Estimated blood loss (mL): 50 IV fluids (mL): 800 Urine output (mL): 0 (No Vargas) Complications: None Findings: Horizontally oriented complete rotator cuff tear of the supraspinatus at the area of impingement. Significant degenerative osteoarthritis of the acromioclavicular joint and fairly significant impingement from the acromion. Condition: stable Disposition: PACU (Then return to same-day surgery for discharge to home) Brief History: Established 61 year old male patient here today for surgical intervention for his left shoulder pain with MRI diagnosis of partial rotator cuff tear, acromioclavicular joint degenerative osteoarthritis, and impingement. Patient scheduled for an acromioplasty, distal clavicle resection, and evaluation of the rotator cuff with repair if indicated. He rates his preoperative pain a 8/10.? He denies improvement with conservative measures.? Risks and complications were discussed with the patient, and consents were signed in the office. Questions were answered at that time. Procedure: The patient was brought to the operating theater and underwent general intubated anesthesia, ASA 3. The patient was placed in a beachchair position and subsequently the left upper extremity was prepped and draped in the usual fashion utilizing DuraPrep. The arm was draped free. A surgical pause was performed prior to commencement of the surgical procedure. At the time of the surgical pause, we confirmed the site and side of surgery as well as administration of appropriate preoperative antibiotics, Ancef 2 g. MRI was also reviewed at that time. Following the surgical pause, an incision was made at approximately the level of the acromioclavicular joint extending across the anterolateral corner of the acromion and distally as necessary. Care was taken to avoid injury to the axillary nerve by limiting the distal extent of the incision. Dissection continued through skin and soft tissues using a scalpel. Hemostasis was obtained using electrocautery. Soft tissues were elevated off the acromion. An acromioplasty was then accomplished using a combination of a saw and a power rasp. With this, we were able to remove compression caused by the acromion. The rotator cuff was then evaluated. The shoulder was placed through range of motion, and the rotator cuff was evaluated. There was found to be a large horizontal tear proximal to the insertion site of the supraspinatus involving the majority of the width of the supraspinatus. This was mobilized. The edges were freshened using a scalpel. As this tear did involve the insertion of the supraspinatus, a primary repair was accomplished using 0 Ethibond with approximately 4 sutures. The tear orientation was noted to be horizontal. After the rotator cuff had been thus addressed, the shoulder was placed through further range of motion to assure there was no further evidence of rotator cuff tear. The acromioclavicular joint was exposed. A saw was used to resect the distal clavicle without difficulty. The undersurface of the clavicle was palpated and was slightly further debrided with a rongeur. A power rasp was used to further smooth the area. When this was felt to be adequately resected, the wound was irrigated. Attention was then directed to closure. Prior to closure, the shoulder was placed once again through range of motion. There was no catching from the rotator cuff repair. There was felt to be adequate decompression of the subacromial space. The wound was irrigated and closure was accomplished with 0 Vicryl in the capsular tissues overlying the acromioclavicular joint area as well as over the acromion and down into the deltoid muscle. 3-0 Monocryl was used to close the subcutaneous tissues followed by 4-0 Monocryl subcuticular closure. This was followed by Dermabond, Steri-Strips, Telfa, and Tegaderm. The patient was placed in a slingshot style sling and was returned to the recovery room in satisfactory condition. The patient will be discharged to home to follow-up in the office as scheduled. There were no complications and no specimens. Related Problem List Diagnoses (1) Left rotator cuff tear: (2) Arthritis of left acromioclavicular joint: (3) Impingement syndrome, shoulder, left:
--- NOTE | 2022-02-22 14:48 | ANE.PACU2 ---
Inpatient post-anesthesia follow up: Airway intact: Yes Vital signs: Temperature 98.1 F Pulse Rate 103 Respiratory Rate 18 Blood Pressure 120/86 Pulse Oximetry 94 Oxygen Delivery Me thod Room Air Oxygen Flow Rate Fraction of Inspir ed Oxygen Hydration adequate: Yes Nausea and vomiting: No Pain level: 1 Mental status: Baseline
== END 2022-02-22 11:28 | disposition home or self-care (01) ==
PROVIDERS: PCP Family Medicine; Visit Provider Specialist
PROC: (CPT 23120; principal; 2022-02-22 09:30)
PROC: (CPT 23130; 2022-02-22 09:30)
PROC: (CPT 23120; 2022-02-22 09:30)
DX: M75.101 Unspecified rotator cuff tear or rupture of right shoulder, not specified as traumatic (principal); M19.012 Primary osteoarthritis, left shoulder; M75.42 Impingement syndrome of left shoulder; I10 Essential (primary) hypertension; E78.5 Hyperlipidemia, unspecified; F41.9 Anxiety disorder, unspecified; N40.1 Benign prostatic hyperplasia with lower urinary tract symptoms; N13.8 Other obstructive and reflux uropathy; Z87.891 Personal history of nicotine dependence
CPT/HCPCS: 23120; 29826; 29827; J1100; J2250; J2370; J2405; J2704; J2795; J3010; J3490; J7030

== ENCOUNTER → 2022-03-01 13:59 | Outpatient (BNVA) | payer OTHER, SELFPAY | PROVIDERS: PCP Family Medicine; Visit Provider Nurse Practitioner Family | DX: Z98.890 Other specified postprocedural states (principal) | CPT/HCPCS: 99024 ==

== ENCOUNTER → 2022-03-08 07:37 | Outpatient (BNVA) | payer OTHER, SELFPAY | PROVIDERS: PCP Family Medicine; Visit Provider Internal Medicine | DX: E83.51 Hypocalcemia (principal); E83.42 Hypomagnesemia; K50.90 Crohn's disease, unspecified, without complications | CPT/HCPCS: 99204 ==

== ENCOUNTER 2022-03-09 06:00 | Outpatient (RCR) | payer OTHER, SELFPAY | END 2022-03-28 23:59 | disposition home or self-care (01) | LOC: TPT 06:00 | PROVIDERS: PCP Family Medicine; Visit Provider Nurse Practitioner Family | DX: M75.102 Unspecified rotator cuff tear or rupture of left shoulder, not specified as traumatic (principal) | CPT/HCPCS: 82310; 82330; 83735; 83970; 97110; 97140; 97162 ==

== ENCOUNTER 2022-03-29 06:00 | Outpatient (RCR) | payer OTHER, SELFPAY | END 2022-04-27 23:59 | disposition home or self-care (01) | LOC: TPT 06:00 | PROVIDERS: PCP Family Medicine; Visit Provider Nurse Practitioner Family | DX: Z98.890 Other specified postprocedural states (principal) | CPT/HCPCS: 97110; 99213 ==

== ENCOUNTER 2022-04-28 06:00 | Outpatient (RCR) | payer OTHER, SELFPAY | END 2022-05-28 23:59 | disposition home or self-care (01) | LOC: TPT 06:00 | PROVIDERS: PCP Family Medicine; Visit Provider Nurse Practitioner Family | DX: Z98.890 Other specified postprocedural states (principal) | CPT/HCPCS: 97110; 97140 ==

== ENCOUNTER 2022-05-09 06:51 | Outpatient (CLI) | payer OTHER, SELFPAY ==
--- NOTE | 2022-05-09 | US_ITS ---
WS: [id number] RIGHT UPPER QUADRANT ULTRASOUND HISTORY: ruq for elevated liver enzymes COMPARISON: None available. Liver: 18.2 cm in length. Liver is very slightly enlarged with mild coarsened echotexture. No mass or bile duct dilatation. Portal Vein: Normal hepatopetal flow with monophasic waveform. Gallbladder: Normally distended gallbladder with no stones or wall thickening. CBD: 0.3 cm Pancreas: Tail the pancreas is obscured by bowel gas. Right kidney: 11.4 cm in length. Normal size and echogenicity. No hydronephrosis or mass. Aorta and IVC: Unremarkable abdominal aorta and IVC. No ascites. US/US abdomen limited [id number] IMPRESSION: 1. Mild hepatic steatosis and hepatomegaly. 2. Negative gallbladder.
== END 2022-05-09 06:52 | disposition home or self-care (01) ==
LOC: RAD 06:52
PROVIDERS: PCP Family Medicine; Visit Provider Family Medicine
DX: Z01.89 Encounter for other specified special examinations (principal)
CPT/HCPCS: 76705

== ENCOUNTER → 2022-06-30 13:04 | Outpatient (BNVA) | payer OTHER, SELFPAY | PROVIDERS: PCP Family Medicine; Visit Provider Nurse Practitioner Family | DX: Z98.890 Other specified postprocedural states (principal); M75.42 Impingement syndrome of left shoulder; M19.012 Primary osteoarthritis, left shoulder | CPT/HCPCS: 99213 ==

== ENCOUNTER 2022-08-04 12:46 | Emergency (ER) | payer OTHER, SELFPAY ==
[2022-08-04 13:09] VITALS: BP 117/76; PULSE 82; RESP 16; TEMP 36.7; O2SAT 96
--- NOTE | 2022-08-04 15:09 | XR_ITS ---
WS: [id number] Portable AP upright chest, 08/04/2022 Clinical Data: cough and fever Comparison: Two-view chest, 11/10/2020 Findings: No nodules, masses or effusions are seen. The heart is normal. The pulmonary vascularity is not increased. No pneumonia or pneumothorax is seen. XR/XR chest 1V portable [id number] Impression: Negative chest.
--- NOTE | 2022-08-04 15:18 | W.ED.URI ---
HPI - URI/Sore Throat General: Chief Complaint: Upper Respiratory Infection Stated Complaint: sob/congestion Time Seen by Provider: 08/04/22 14:46 History of Present Illness: Patient is a 61-year-old male comes to the ED with upper respiratory symptoms. Symptoms started approximately 2 weeks ago with a sore throat. His symptoms have progressed and he has developed nasal congestion and drainage, fever, chills and a cough. His cough has worsened over the past couple days and it is productive. Endorses having some shortness of breath over the past couple days as well due to cough. Symptoms worsen when he lays flat. Associated symptoms: Reports chills, fever(s) and nasal congestion; Deny abdominal pain, chest pain, diarrhea, headache(s), nausea or vomiting Review of Systems Const: Reports: fever(s), chills and body aches; Denies: fatigue Eyes: Denies: change in vision or eye discomfort ENMT: Reports: throat pain, nasal discharge and nasal congestion; Denies: odynophagia Card: Denies: chest pain, palpitations, edema, swelling of feet/ankles, dyspnea on exertion or orthopnea Resp: Reports: dyspnea, productive cough and wheezing; Denies: non-productive cough GI: Denies: abdominal pain, nausea, vomiting, diarrhea, constipation or hematochezia : Denies: flank pain, difficulty urinating, dysuria or hematuria Musc: Denies: neck pain, back pain or extremity swelling Skin/Breast: Denies: rash or new lesions Neuro: Denies: headache(s), numbness in extremities or weakness in extremities PFS ED PFSH: Medical History Anxiety Atypical chest pain The chest pain is mostly resolved at this time. BPH loc w urin obs/LUTS Cardiomyopathy Elevation fraction about 35 to 40% by echocardiogram. Based on the left ventricular angiogram, seems to be around 45 to 50% at this time-03/17/2020 Crohn's disease Dyslipidemia (high LDL; low HDL) Elevated PSA Erectile dysfunction History of nonmelanoma skin cancer HTN (hypertension) Patient has a history of essential benign hypertension. Hx of hiatal hernia Renal insufficiency This is chronic and seems to be stable at this time SOB (shortness of breath) Patient is mainly complaining of dyspnea on exertion. The symptoms are improving at this time. Surgical History Hx of detached retina repair BILATERAL Hx of hernia repair Family History Father , at age 81 Cancer Diabetes Clotting disorder Stroke Mother Cancer Denies family history of CAD (coronary artery disease) Dementia Chronic kidney disease (CKD) Suicide Anesthesia complication Bleeding disorder Lung disease Social History Smoking and tobacco status: never smoked Quit status (tobacco): has quit using tobacco Former quit date comment: PPD x 30 yrs Second hand smoke exposure: No Alcohol intake: current Alcohol intake frequency: holidays/special occasions only Lives independently: No Household members: spouse Marital status: Current occupational status: disabled Current gender identity: Male Physical Exam Const: COMMON NORMALS: no acute distress, patient oriented x3 and alert GENERAL APPEARANCE: cooperative HENMT: COMMON NORMALS: normocephalic HEAD & SCALP: normocephalic MOUTH: Normal oral and palatal mucosa present THROAT: posterior oropharynx normal and uvula midline Neck/C-Spine: COMMON NORMALS: supple GENERAL: Yes normal visual inspection Resp: COMMON NORMALS: normal respiratory effort, No retractions and No use of accessory muscles AUSCULTATION: wheezes expiratory wheezes and throughout Cardio: COMMON NORMALS: regular rate, regular rhythm, S1 normal heart sound present, S2 normal heart sound present, No gallops present (Cardio), No clicks present (Cardio), No murmurs present (Cardio) and Peripheral pulses 2+ throughout RATE: regular rate RHYTHM: regular rhythm HEART SOUNDS: S1 normal heart sound present and S2 normal heart sound present PERIPHERAL PULSES: Peripheral pulses 2+ throughout GI: COMMON NORMALS: Normal to inspection, nondistended, normoactive bowel sounds present, Soft to palpation, non-tender and no masses PALPATION: Yes Soft to palpation : COMMON NORMALS: Yes no CVA tenderness BLADDER/KIDNEY EXAM: Yes no CVA tenderness Back/Pelvis: COMMON NORMALS: no CVA tenderness Extremity: COMMON NORMALS: normal to inspection Neuro: COMMON NORMALS: patient oriented x3 SENSORIUM/ORIENTATION: Yes alert GAIT: Yes Normal gait present Skin: GENERAL SKIN EXAM: dry skin Course Vital Signs: Vital signs: Vital Signs Temperature 98.0 F 08/04/22 13:09 Pulse Rate 84 08/04/22 15:45 Respiratory Rate 18 08/04/22 16:21 Blood Pressure 117/76 08/04/22 13:09 Pulse Oximetry 98 08/04/22 16:21 Oxygen Delivery Me thod 08/04/22 15:45 MDM - URI/Sore Throat Medical Decision Making Patient is a 61-year-old male comes to the ED with upper respiratory symptoms. Symptoms started approximately 2 weeks ago with a sore throat. His symptoms have progressed and he has developed nasal congestion and drainage, fever, chills and a cough. His cough has worsened over the past couple days and it is productive. Endorses having some shortness of breath over the past couple days as well due to cough. Symptoms worsen when he lays flat. Vitals stable. Patient appears nontoxic in no acute distress or pain. Expiratory wheezes throughout lungs bilaterally upon auscultation. Rest of exam is benign. Chest x-ray shows no acute findings. Patient was given an DuoNeb breathing treatment and IM Solu-Medrol. He was diagnosed with bronchitis and was stable for discharge home. Sent home with a prescription for albuterol inhaler, Medrol Dosepak and azithromycin. Lab Data Radiology Impressions Chest X-Ray 08/04/22 15:09 Impression: Negative chest. Discharge Plan Discharge Patient Disposition: Home Clinical Impression: Bronchitis Condition: Stable Prescriptions: New azithromycin 250 mg tablet See Rx Instructions .ROUTE .COMPLEX Qty: 6 0RF Rx Instructions: For 250 mg dose pack: take 500 mg today (day 1), then 250 mg for 4 days (days 2-5) Medrol (Bogdan) 4 mg tablets,dose pack See Rx Instructions .ROUTE .COMPLEX Qty: 21 0RF Rx Instructions: orally per package directions albuterol sulfate 90 mcg/actuation HFA aerosol inhaler 2 inh inhalation Q6H PRN (Reason: shortness of breath or wheezing) Qty: 8.5 0RF benzonatate 100 mg capsule 100 mg PO Q6H PRN (Reason: cough) Qty: 20 0RF No Action omeprazole 40 mg capsule,delayed release(DR/EC) 40 mg PO DAILY atorvastatin 40 mg tablet 40 mg PO DAILY sildenafil 100 mg tablet 100 mg PO DAILY PRN (Reason: Sexual Activity) Rx Instructions: administer 30 minutes to 4 hours before activity hydrocodone-acetaminophen 5-325 mg tablet 1 tab PO Q4H PRN (Reason: pain) 5 Days Qty: 30 0RF clindamycin phosphate 1 % lotion 1 applic topical BID Qty: 60 3RF Rx Instructions: Apply to back and areas broke-out. tamsulosin 0.4 mg capsule 0.4 mg PO DAILY Qty: 90 3RF venlafaxine 37.5 mg Capsule,Extended Release 24hr 37.5 mg PO DAILY@0700 alprazolam 0.5 mg tablet 0.5 mg PO Q4H PRN (Reason: Anxiety) amlodipine 10 mg tablet 10 mg PO DAILY@0700 losartan 100 mg tablet 100 mg PO DAILY@0700 multivitamin [Multiple Vitamins] Tablet 1 tab PO DAILY@0700 risankizumab-rzaa 150 mg/mL Syringe 150 mg SUBCUT DIRECTED Rx Instructions: every 3 months Discharge Orders: Discharge ED (Routine); Ordered 08/04/22 Ordered By: Adryan Petty Referrals: Nel Mohan MD [Primary Care Provider] - Discharge Diet: Regular Discharge Activity: Increase activity as tolerated Patient Instructions: Acute Bronchitis (ED) Activity Restrictions/Additional Instructions: Follow-up with medical provider as directed in the next 3 to 5 days for reevaluation. Take medications as prescribed. Return to the ER or your medical provider if condition worsens. Please read and understand discharge instructions. Thank you for choosing [facility] for your healthcare needs today. Please realize this is an emergency room and that we are providing you with a medical screening exam and this may not be complete and all inclusive of all the testing and or work up that you may need to determine your ailment or severity of your illness. It is very important that you follow up as instructed or that you return to the Emergency Department should you have concerns or if your condition changes or worsens in any way. Coding Level of Care Code ED Bankruptcy Assistant for Kade Hennessy
[2022-08-04] MEDS: ipratropium-albuterol 3 mL Neb 6 ML INHALATION (15:42)
[2022-08-04 15:45] VITALS: PULSE 84; RESP 18; O2SAT 96
[2022-08-04 16:21] VITALS: RESP 18; O2SAT 98
== END 2022-08-04 16:22 | disposition home or self-care (01) ==
PROVIDERS: Emergency Provider Physician Assistant; PCP Family Medicine
DX: J40 Bronchitis, not specified as acute or chronic (principal); Z87.891 Personal history of nicotine dependence; E78.5 Hyperlipidemia, unspecified; I10 Essential (primary) hypertension
CPT/HCPCS: 71045; 94640; 96372; 99284; J2930

== ENCOUNTER → 2022-11-16 09:36 | Outpatient (BNVA) | payer OTHER, SELFPAY | PROVIDERS: PCP Family Medicine; Visit Provider Nurse Practitioner Family | DX: L82.0 Inflamed seborrheic keratosis (principal); Z85.828 Personal history of other malignant neoplasm of skin; Z87.891 Personal history of nicotine dependence; L82.1 Other seborrheic keratosis; L57.0 Actinic keratosis; L85.3 Xerosis cutis; L81.4 Other melanin hyperpigmentation; D22.5 Melanocytic nevi of trunk; Z71.89 Other specified counseling; L57.8 Other skin changes due to chronic exposure to nonionizing radiation | CPT/HCPCS: 17000; 17003; 17110; 99213 ==

== ENCOUNTER 2022-11-22 10:40 | Outpatient (CLI) | payer OTHER, SELFPAY | END 2022-11-22 10:41 | disposition home or self-care (01) | LOC: RT 10:41 | PROVIDERS: PCP Family Medicine; Visit Provider Family Medicine | DX: J42 Unspecified chronic bronchitis (principal); Z87.891 Personal history of nicotine dependence | CPT/HCPCS: 94010; 94060; 94726; 94729 ==

== ENCOUNTER → 2023-01-04 15:25 | Outpatient (BNVA) | payer OTHER, SELFPAY | PROVIDERS: PCP Family Medicine; Referring Provider Family Medicine; Visit Provider Internal Medicine Pulmonary Disease | DX: J30.2 Other seasonal allergic rhinitis (principal) | CPT/HCPCS: 36415; 82785; 86003; 99204 ==

== ENCOUNTER 2023-02-22 06:00 | Outpatient (RCR) | payer OTHER, SELFPAY | END 2023-02-25 23:59 | disposition home or self-care (01) | LOC: TPT 06:00 | PROVIDERS: Visit Provider Family Medicine | DX: R29.3 Abnormal posture (principal) | CPT/HCPCS: 97110; 97161 ==

== ENCOUNTER → 2023-02-24 08:31 | Outpatient (BNVA) | payer OTHER, SELFPAY | PROVIDERS: Visit Provider Nurse Practitioner Family | DX: L82.0 Inflamed seborrheic keratosis (principal); L82.1 Other seborrheic keratosis; L85.3 Xerosis cutis; L81.4 Other melanin hyperpigmentation; D22.5 Melanocytic nevi of trunk; L57.8 Other skin changes due to chronic exposure to nonionizing radiation; Z85.828 Personal history of other malignant neoplasm of skin; L57.0 Actinic keratosis | CPT/HCPCS: 17004; 99213 ==

== ENCOUNTER 2023-02-26 06:00 | Outpatient (RCR) | payer OTHER, SELFPAY | END 2023-03-08 23:59 | disposition home or self-care (01) | LOC: TPT 06:00 | PROVIDERS: Visit Provider Family Medicine | DX: R29.3 Abnormal posture (principal) | CPT/HCPCS: 97110 ==

== ENCOUNTER → 2023-03-31 08:31 | Outpatient (BNVA) | payer OTHER, SELFPAY | PROVIDERS: PCP Family Medicine; Visit Provider Nurse Practitioner Family | DX: Z85.828 Personal history of other malignant neoplasm of skin (principal); L57.0 Actinic keratosis; L57.8 Other skin changes due to chronic exposure to nonionizing radiation; L81.4 Other melanin hyperpigmentation; L82.0 Inflamed seborrheic keratosis; L82.1 Other seborrheic keratosis | CPT/HCPCS: 17000; 17110; 99213 ==

== ENCOUNTER → 2023-06-29 09:35 | Outpatient (BNVA) | payer OTHER, SELFPAY | PROVIDERS: PCP Family Medicine; Visit Provider Nurse Practitioner Family | DX: Z85.828 Personal history of other malignant neoplasm of skin (principal); L57.0 Actinic keratosis; L57.8 Other skin changes due to chronic exposure to nonionizing radiation; L81.4 Other melanin hyperpigmentation; L82.1 Other seborrheic keratosis; L82.0 Inflamed seborrheic keratosis | CPT/HCPCS: 17000; 17110; 99213 ==

== ENCOUNTER → 2023-12-05 08:08 | Outpatient (BNVA) | payer OTHER, SELFPAY | PROVIDERS: PCP Family Medicine; Visit Provider Nurse Practitioner Family | DX: Z85.828 Personal history of other malignant neoplasm of skin (principal); L57.0 Actinic keratosis; L82.0 Inflamed seborrheic keratosis; L57.8 Other skin changes due to chronic exposure to nonionizing radiation; L81.4 Other melanin hyperpigmentation; L82.1 Other seborrheic keratosis; D22.5 Melanocytic nevi of trunk | CPT/HCPCS: 17000; 17110; 99214 ==

== ENCOUNTER → 2024-06-03 08:12 | Outpatient (BNVA) | payer OTHER, SELFPAY | PROVIDERS: PCP Family Medicine; Visit Provider Nurse Practitioner Family | DX: L57.8 Other skin changes due to chronic exposure to nonionizing radiation (principal); L81.4 Other melanin hyperpigmentation; D22.5 Melanocytic nevi of trunk; Z08 Encounter for follow-up examination after completed treatment for malignant neoplasm; Z85.828 Personal history of other malignant neoplasm of skin; L57.0 Actinic keratosis | CPT/HCPCS: 17000; 99213 ==

== ENCOUNTER → 2025-02-04 09:00 | Outpatient (BNVA) | payer OTHER, SELFPAY | PROVIDERS: PCP Family Medicine; Visit Provider Nurse Practitioner Family | DX: L81.4 Other melanin hyperpigmentation (principal); L57.8 Other skin changes due to chronic exposure to nonionizing radiation; L82.1 Other seborrheic keratosis; L72.0 Epidermal cyst; Z08 Encounter for follow-up examination after completed treatment for malignant neoplasm; Z85.828 Personal history of other malignant neoplasm of skin; L82.0 Inflamed seborrheic keratosis; L53.8 Other specified erythematous conditions; R58 Hemorrhage, not elsewhere classified; R20.8 Other disturbances of skin sensation; Z78.9 Other specified health status; L29.89 Other pruritus; L57.0 Actinic keratosis | CPT/HCPCS: 17000; 17110; 99213 ==